=== PATIENT | female | born 1950 | race Caucasian/White ===

== ENCOUNTER 2018-04-15 16:45 | Outpatient (REF) | payer MEDICARE, SELFPAY ==
--- NOTE | 2018-04-15 16:00 | PAPFT_PTH ---
PATIENT: Randee Ho LOC: [facility] U#:[id number] AGE/SX: 67/F ROOM: RE04/15/[address]: Skyla Bui : 1950 BED: DIS: 04/15/2018 SPEC #: [id number] RECD: 04/16/18 12:56 STATUS: ARTEMIO REJosé Antonio #: [id number] KATIANA: 04/15/18 16:[address]: Skyla Bui DEPT: [facility] Cytology RECD BY: Ana Castorena Tissues: 1 - CX/ENDOCX FOR PAP SMEARS Procedures: PAP THIN PREP/[facility]VM Screening HPV DNA PROBE Comments: [id number]
== END 2018-04-15 17:05 ==
LOC: NCHCN 16:45
PROVIDERS: PCP Family Medicine; Visit Provider Family Medicine
DX: Z12.4 Encounter for screening for malignant neoplasm of cervix (principal); Z11.51 Encounter for screening for human papillomavirus (HPV)
CPT/HCPCS: 88142; 87624

== ENCOUNTER 2018-06-04 00:22 | Outpatient (CLI) | payer MEDICARE, SELFPAY ==
--- NOTE | 2018-06-04 12:50 | DI.DEXA_ITS ---
SYMPTOM/DIAGNOSIS: BASELINE, SCREENING FOR OSTEOPOROSIS IN POSTMENOPAUSAL WOMAN , Z78.0, [facility] DEXA SCAN: Routine examination. No priors for comparison. Evaluation of the lateral spine shows no compression fracture deformities. Evaluation of the left hip shows a total T score of 1.0 and a Z score of 2.4. Evaluation of the lumbar spine shows a total T score of 1.9 and a Z score of 3.7. These are within normal limits. There is no evidence of osteoporosis. IMPRESSION: No evidence of osteoporosis.
== END 2018-06-04 00:42 ==
PROVIDERS: PCP Family Medicine; Visit Provider Family Medicine
DX: Z13.820 Encounter for screening for osteoporosis (principal); Z78.0 Asymptomatic menopausal state
CPT/HCPCS: 77080

== ENCOUNTER 2019-02-14 12:48 | Outpatient (REF) | payer MEDICARE, SELFPAY ==
[2019-02-17 12:04] LABS: Hepatitis C Ab w Rflx HCV PCR Negative (NEGAT)
== END 2019-02-14 13:08 ==
LOC: NCHCN 12:48
PROVIDERS: PCP Family Medicine; Visit Provider Family Medicine
DX: Z11.59 Encounter for screening for other viral diseases (principal); I10 Essential (primary) hypertension
CPT/HCPCS: 86803

== ENCOUNTER 2021-02-21 13:55 | Outpatient (REF) | payer MEDICARE, SELFPAY ==
--- NOTE | 2021-02-21 13:20 | PAPFT_PTH ---
PATIENT: Randee Ho LOC: [facility] U#:[id number] AGE/SX: 70/F ROOM: RE02/21/[address]: MLEANIE Hernández : 1950 BED: DIS: 02/21/2021 SPEC #: [id number] RECD: 02/21/21 17:46 STATUS: ARTEMIO REQ #: [id number] KATIANA: 02/21/21 13:[address]: Haydee Obrien DEPT: [facility] Cytology RECD BY: Ana Castorena ENTERED: 02/21/21 17:47 SP TYPE: PAPFT OTHR DR: Skyla Bui Tissues: 1 - CX/ENDOCX FOR PAP SMEARS Procedures: PAP THIN PREP/UVM Screening HPV DNA PROBE Comments: [id number]
== END 2021-02-21 13:56 | disposition home or self-care (01) ==
LOC: LBN 13:55
PROVIDERS: PCP Family Medicine; Visit Provider Nurse Practitioner Family
DX: Z12.4 Encounter for screening for malignant neoplasm of cervix (principal); Z11.51 Encounter for screening for human papillomavirus (HPV); Z01.419 Encounter for gynecological examination (general) (routine) without abnormal findings
CPT/HCPCS: 88142; 87624

== ENCOUNTER 2022-09-25 11:58 | Emergency (ER) | payer MEDICARE, SELFPAY ==
[2022-09-25 12:04] VITALS: BP 177/60; PULSE 68; RESP 18; TEMP 36.8; O2SAT 100
[2022-09-25 12:11] VITALS: RESP 18
--- NOTE | 2022-09-25 13:34 | DI.RAD_ITS ---
Exam(s) XR CHEST 2V PA LATERAL EXAM: XR CHEST 2V PA LATERAL CLINICAL HISTORY: cough for several months TECHNIQUE: 2D digital imaging was performed of the chest. Two images were obtained. PA and lateral views were obtained. COMPARISON: No exams were available for comparison FINDINGS: MEDIASTINUM: Normal. HEART: Normal. PULMONARY VASCULATURE: Normal. LUNGS: Clear. PLEURAL SPACE: No pleural effusion or pneumothorax. BONE:Within normal limits for the patient's age. OTHER FINDINGS:Normal. IMPRESSION: No acute pulmonary findings. DATA REPOSITORY: RADIATION DOSE DELIVERED:
--- NOTE | 2022-09-25 13:39 | ED.GENADUL_ITS ---
Discharge Plan Disposition Patient Disposition: Home Condition: Stable Discharge Details Clinical Impression: URI (upper respiratory infection) Primary Care Provider: Skyla Bui ED Provider: Ana Jay Home Meds and New Rx's Prescriptions: New montelukast 10 mg tablet 10 mg PO DAILY Qty: 30 0RF amoxicillin-pot clavulanate 875-125 mg tablet 1 tab PO BID Qty: 10 0RF prednisone 20 mg tablet 40 mg PO ONCE Qty: 10 0RF Continued cholecalciferol (vitamin D3) [Vitamin D3] 400 UNIT capsule 50 mcg PO DAILY Rx Instructions: 2 daily, strength unknown multivitamin [Daily Vitamin] 1 EACH tablet 1 ea PO DAILY atenolol 50 MG tablet 50 mg PO DAILY benzonatate 100 mg Capsule 100 mg PO TID Discharge Instructions Instructions: Upper Respiratory Infection (ED) Additional Instructions: Take the medication as prescribed Yogurt daily while on antibiotic Follow-up your primary care physician return earlier with new or worsening complaints Referrals: Skyla Bui [Primary Care Provider] - Discharge Data Discharge Date/Time-TO BE ENTERED AT DEPARTURE: 09/25/22 13:59 Medical Decision Making This 71-year-old female presents with report of shortness of breath, productive cough and upper respiratory symptoms for months Secondary to age, I did order chest x-ray which does not show evidence of acute abnormality, patient denies any chest discomfort per radiology interpretation and my review She is placed on albuterol, steroids Montelukast, and she is encouraged to follow-up with her doctor Return precautions were reviewed and patient expressed understanding She is discharged home in stable condition with slightly elevated blood pressure and Medical Records Medical records reviewed: Yes I reviewed the patient's medical records. Lab Data Lab results reviewed: Yes I reviewed the patient's lab results. HPI General Date/Time Provider Initiated Documentation: 09/25/22 12:12 . HPI Narrative: This 71-year-old female presents with shortness of breath, productive cough, s inus pain for months per patient. Denies any acute symptoms. Came today she had a coughing episode this morning. Denies any fever or chills. Denies any shortness of breath currently. Denies any hemoptysis. Denies any known sick contacts, calf pain or swelling. States she has been seen previously by her doctor for similar presentation. Related Data Home Medications Medication Instructions Recorded Confirmed cholecalciferol (vitamin D3) 10 50 mcg PO DAILY 02/23/15 09/25/22 mcg (400 unit) capsule (Vitamin D3) multivitamin (Daily Vitamin tablet) 1 ea PO DAILY 03/02/15 09/25/22 atenolol 50 mg tablet 50 mg PO DAILY 05/21/15 09/25/22 amoxicillin 875 mg-potassium 1 tab PO BID #10 tabs 09/25/22 clavulanate 125 mg tablet benzonatate 100 mg capsule 100 mg PO TID 09/25/22 09/25/22 montelukast 10 mg tablet 10 mg PO DAILY #30 tabs 09/25/22 prednisone 20 mg tablet 40 mg PO ONCE #10 tabs 09/25/22 Previous Rx's Medication Instructions Recorded amoxicillin 875 mg-potassium 1 tab PO BID #10 tabs 09/25/22 clavulanate 125 mg tablet montelukast 10 mg tablet 10 mg PO DAILY #30 tabs 09/25/22 prednisone 20 mg tablet 40 mg PO ONCE #10 tabs 09/25/22 Allergies Allergy/AdvReac Type Severity Reaction Status Date / Time No Known Drug Allergies Allergy Unverified 09/25/22 12:07 General Stated Complaint: GenMedical SAGAR: 4 PFSH All Active Problems (Updated 09/25/22 @ 13:40 by RUDY Lopez) URI (upper respiratory infection) (Acute) Cervical polyp (Acute) Hypertension (Chronic) Medical History (Updated 09/25/22 @ 13:40 by RUDY Lopez) Hypertension Surgical History (Updated 05/15/18 @ 14:33 by [facility]) Ligation of fallopian tube (~1984) Pt notes that she thinks she has clamps on tube ends. Family History Mother Diabetes Essential hypertension Father , Old age at age 85. Essential hypertension Hyperlipidemia Grandfather , old age at age 85. No problems noted. Grandfather , old age at age 84. No problems noted. Grandmother , old age at age 83. Diabetes Grandmother , old age at age 84. No problems noted. Social History Smoking/Tobacco Use Status: Never Smoking risk assessment performed?: Yes Alcohol Intake: current Alcohol Intake frequency: a few times a week Drug use: Never Substance use type: does not use Exam Const General: cooperative, comfortable and no acute distress Eyes Sclera: sclerae normal Resp Effort & Inspection: normal respiratory effort Auscultation: clear to auscultation bilaterally Cardio Rate: regular rate Rhythm: regular rhythm GI Inspection: normal to inspection Skin General skin exam: no rashes or lesions noted Neuro General: patient alert and patient oriented x3 Extrem General: normal to inspection Left upper extremity: normal to inspection Other: No calf swelling or tenderness, neurovascularly intact Course Vital Signs Vital signs: Vital Signs Temperature 36.8 C 09/25/22 12:04 Pulse 68 09/25/22 12:04 Respiratory Rate 18 09/25/22 12:04 Blood Pressure 177/60 H 09/25/22 12:04 Pulse Oximetry 100 09/25/22 12:04 Temperature 36.8 C 09/25/22 12:04 Temperature Source Oral 09/25/22 12:04 Pulse 68 09/25/22 12:04 Respiratory Rate 18 09/25/22 12:11 Respiratory Effort Normal, Non-Labored 09/25/22 12:11 Respiratory Depth Normal 09/25/22 12:11 Respiratory Pattern Normal 09/25/22 12:11 Blood Pressure 177/60 H 09/25/22 12:04 Blood Pressure Position Sitting 09/25/22 12:04 Pulse Oximetry 100 09/25/22 12:04 Oxygen Delivery Method Room Air 09/25/22 12:04 Oxygen Flow Rate 0 09/25/22 12:04 PAWSS Have you Been Recently Intoxicated or Drunk Within the Last 30 days?: No Have you Ever Experienced Previous Episodes of Alcohol Withdrawal?: No Have you ever Experienced Withdrawal Seizures?: No Have you ever Experienced Delirium Tremens(DT)s?: No Have you ever undergone Alcohol Rehabilitation Treatment (i.e, inpt ot outpatient treatment programs)?: No Have you ever Experienced Blackouts?: No Have you ever Combined Alcohol with other Downers within the last 90 days?: No Have you ever Combined Alcohol with any other Substance of Abuse during the last 90 days?: No Positive Blood Alcohol level on Presentation? [PCS.BAL]: No Evidence of Increased Autonomic Activity (i.e. HR>120, tremor, sweating, agitation, nausea)?: No Result: 0
[2022-09-25] MEDS: Albuterol HFA 8 GM 60 PUFF INH IH (13:52)
[2022-09-25 13:55] VITALS: BP 158/58; PULSE 60; RESP 16; TEMP 37; O2SAT 100
== END 2022-09-25 13:59 | disposition home or self-care (01) ==
PROVIDERS: Emergency Provider Physician Assistant; PCP Family Medicine
DX: J06.9 Acute upper respiratory infection, unspecified (principal); I10 Essential (primary) hypertension
CPT/HCPCS: 94640; 99283; 71046; 99284

== ENCOUNTER → 2023-07-20 00:44 | Outpatient (CLI) | payer MEDICARE, SELFPAY ==
--- NOTE | 2023-07-20 12:58 | DI.MAMMO_ITS ---
Exam(s) MAMMO SCREENING EXAM: MAMMO SCREENING CLINICAL HISTORY: SCREENING, Z12.31 TECHNIQUE: Bilateral full field digital CC and MLO mammographic images were obtained with 3D tomosyn thesis and utilizing computer aided detection (CAD). COMPARISON: This is a baseline examination. FINDINGS: Masses/Architectural Distortion: None seen. Microcalcifications: No suspicious pleomorphic-type are seen. Skin Thickening/Nipple Retraction: None. IMPRESSION: 1. No significant interval change with no specific features of malignancy noted. 2. Unless there is more urgent need, screening mammography is recommended, as per [employer] guidelines. BI-RADS Category 1 - Negative Breast Density - Category B - Scattered areas of fibroglandular density Breast density category C or D implies that the patient has dense breast tissue. Dense breast tissue is very common and is not abnormal but dense breast tissue can make it harder to find cancer on a ma mmogram. Also, dense breast tissue may increase their breast cancer risk. This information about the result of the mammogram report was provided to the patient to raise their awareness. Use this report when you speak with the patient about their risks for breast cancer, which includes their family hist ory. At that time, you may recommend for more screening tests (Ultrasound or MRI) as they might be us eful based on their risk. A negative radiographic report should not delay biopsy if a dominant or clinically suspicious mass is present. Up to ten percent of cancers are not identified on mammography. A negative report may reinforce clinical impression. Adenosis and dense breasts may obscure an underlying neoplasm. False positive reports average 6 to 10%. Patient will receive a letter notifying them of these results.
== END ==
PROVIDERS: PCP Family Medicine; Visit Provider Family Medicine
DX: Z12.31 Encounter for screening mammogram for malignant neoplasm of breast (principal)
CPT/HCPCS: 77063; 77067

== ENCOUNTER → 2023-07-26 13:39 | Outpatient (BNVA) | payer MEDICARE, SELFPAY | PROVIDERS: PCP Family Medicine; Referring Provider Family Medicine; Visit Provider Physical Therapy Assistant | DX: Z12.11 Encounter for screening for malignant neoplasm of colon (principal); R63.4 Abnormal weight loss ==

== ENCOUNTER 2023-08-01 04:53 | Outpatient (CLI) | payer MEDICARE, SELFPAY ==
[2023-08-01 10:55] LABS: Abs Immature Grans 0.02 10^3/uL (0.0-0.06); Absolute Basophil Count 0.05 10^3/uL (0.0-0.2); Absolute Eosinophil Count 0.45 10^3/uL (0.0-0.7); Absolute Lymphocyte Count 1.26 10^3/uL (1.2-3.4); Absolute Monocyte Count 0.38 10^3/uL (0.1-0.8); Absolute Neutrophil Count 3.53 10^3/uL (1.2-6.7); Basophils % 0.9; Eosinophils % 7.9; HGB 14.8 g/dL (11.2-15.7); Immature Grans % 0.4; Lymphocytes % 22.1; MCH 32.7 pg (27.0-33.0); MCHC 34.4 % (32.0-36.0); MCV 95 fL (80-95); MPV 8.5 fL (8.0-11.0); Monocytes % 6.7; Platelet Count 155 10^3/uL (130-400); RBC 4.52 10^6/uL (3.93-5.22); RDW 14.6 % (11.7-14.6); RDW-SD 50.9 fL; WBC 5.69 10^3/uL (4.4-10.8)
[2023-08-01 11:31] LABS: ALT 20 U/L (14-59); AST 25 U/L (15-37); Alkaline Phosphatase 87 U/L (46-116); Anion Gap 7.1 mmol/L (3-11); BUN 4 mg/dL (7-18); Bilirubin, Total 0.7 mg/dL (0.2-1.0); CO2 29.9 mmol/L (21.0-32.0); CREATININE 0.8 mg/dL (0.55-1.02); Calcium 9.4 mg/dL (8.5-10.1); Calculated LDL 58 mg/dL (<100); Chloride 92 mmol/L (98-107); Cholesterol 174 mg/dL (<200); Estimated GFR 78.72 (mL/min/1.73m2); FREE T4 1.07 ng/dL (0.76-1.46); Glucose 102 mg/dL (74-106); HDL Cholesterol 108 mg/dL (40-60); Potassium 3.1 mmol/L (3.5-5.1); Sodium 129 mmol/L (136-145); TSH 1.97 uIU/mL (0.36-3.74); Total Protein 6.7 g/dL (6.4-8.2); Triglyceride 44 mg/dL (<150)
[2023-08-01 11:43] LABS: Vitamin D 25 Total 76.4 ng/mL (30-100)
== END 2023-08-01 04:54 | disposition home or self-care (01) ==
PROVIDERS: PCP Family Medicine; Visit Provider Family Medicine
DX: R63.4 Abnormal weight loss (principal)
CPT/HCPCS: 36415; 80053; 80061; 82306; 84439; 84443; 85025

== ENCOUNTER 2024-03-05 21:41 | Outpatient (REF) | payer MEDICARE, SELFPAY ==
[2024-03-05 21:37] LABS: HGB 13.9 g/dL (11.2-15.7); MCH 33.8 pg (27.0-33.0); MCHC 33.9 % (32.0-36.0); MCV 100 fL (80-95); MPV 9.1 fL (8.0-11.0); Platelet Count 234 10^3/uL (130-400); RBC 4.11 10^6/uL (3.93-5.22); RDW 12.5 % (11.7-14.6); WBC 8.94 10^3/uL (4.4-10.8)
--- OUTSIDE RECORDS SUMMARY | 2024-03-05 21:44 | XMS_ITS | Data Portability ---
Author Organization [facility], [facility] [place] [address] Assessment Encounter Date Assessment Date Assessment LastModified by Organization Details LastModified Time 03/05/2024 03/05/2024 The total time devoted to today's encounter, including both the ewio-vv-epof time with the patient and/or family/caregi katt and uhc-bvdr-ev-f kvng time I personally spent is 45 minutes. lbisson Not available 03/05/2024 16:17:58 Plan of Treatment Reminders Order Date Submit Date Provider Last Modified By Organization Details Last Modified Time Details Appointments Annual Chronic Care (65+) 40 2023 03:30P M SKYLA BUI Not available Not available Not available Follow Up 20 2023 03:50P M SKYLA BUI Not available Not available Not available Lab noninvasi ve colorecta l cancer DNA + occult blood screening , QL, stool 2023 024 [facility] (Cologuard Orders Only), [address], [place], [address], 09/04/2023 18:42:08 vitamin B12, serum 2023 024 [facility] ([facility]), [address] [place] [address] [place], [address], 03/05/2024 16:35:22 lipid panel, serum 2023 024 [facility] ([facility]), [address] [place] [address] [place], [address], 03/05/2024 16:35:21 CBC 2023 [facility] ([facility]), [address] [place] [address] [place], [address], 03/05/2024 21:40:48 vitamin D, 25-hydrox y, total, serum 2023 [facility] [address] [place] [address] [place], [address], 03/05/2024 16:30:41 CMP, serum or plasma - 1T, 1P 2023 [facility] [address] [place] [address] [place], [address], 03/05/2024 16:45:[address] referral 2023 lbisson [facility], [address] [place] [address] [place], [address], 03/05/2024 16:16:49 Procedures None recorded. Surgeries None recorded. Imaging None recorded. Medication Orders mirtazapi ne 15 mg tablet 2023 024 [facility], [address], [place], [address], 08/03/2023 16:45:39 hydrochlo rothiazid e 25 mg tablet 2023 024 [facility], [address] [place], [address], 08/03/2023 16:45:39 atenolol 100 mg tablet 2023 024 [facility], [address] [place], [address], 08/03/2023 16:45:37 atorvasta tin 10 mg tablet 2023 024 [facility], [address] , [place], [address], 08/03/2023 16:45:37 Patient TargetsNo targets recorded. Patient InstructionsNo instructions recorded. Reason for Referral Neurologist Referral for Mem ory impairment Referring Physician: Skyla Bui, Family Medicine, Encounter Date: 03/05/2024 Results Created Date Observation Date Name Description Value Unit Range Abnormal Flag LastModifiedBy Organization Detail LastModifiedTime 08/01/19 24 08/01/2023 COMPL ETE BLOOD COUNT W/DIF F WBC 5.69 10_3/ uL 4.4-10 .8 normal Not Available [address] [place], [address] 08/01/2023 10:58:44 08/01/19 24 08/01/2023 COMPL ETE BLOOD COUNT W/DIF F RBC 4.52 10_6/ uL 3.93-5 .22 normal Not Available [address] [place], [address] 08/01/2023 10:58:44 08/01/19 24 08/01/2023 COMPL ETE BLOOD COUNT W/DIF F HGB 14.8 g/dL 11.2-1 5.7 normal Not Available [address] [place], [address] 08/01/2023 10:58:44 08/01/19 24 08/01/2023 COMPL ETE BLOOD COUNT W/DIF F HCT 43.0 % 36.0-4 6.0 normal Not Available [address] [place], [address] 08/01/2023 10:58:44 08/01/19 24 08/01/2023 COMPL ETE BLOOD COUNT W/DIF F MCV 95 fL 80-95 normal Not Available [address] [place], [address] 08/01/2023 10:58:44 08/01/19 24 08/01/2023 COMPL ETE BLOOD COUNT W/DIF F MCH 32.7 pg 27.0-3 3.0 normal Not Available [address] [place], [address] 08/01/2023 10:58:44 08/01/19 24 08/01/2023 COMPL ETE BLOOD COUNT W/DIF F MCHC 34.4 % 32.0-3 6.0 normal Not Available [address] [place], [address] 08/01/2023 10:58:44 08/01/19 24 08/01/2023 COMPL ETE BLOOD COUNT W/DIF F RDW 14.6 % 11.7-1 4.6 normal Not Available [address] [place], [address] 08/01/2023 10:58:44 08/01/19 24 08/01/2023 COMPL ETE BLOOD COUNT W/DIF F platelet count 155 10_3/ uL 130-40 0 normal Not Available [address] [place], [address] 08/01/2023 10:58:44 08/01/19 24 08/01/2023 COMPL ETE BLOOD COUNT W/DIF F MPV 8.5 fL 8.0-11 .0 normal Not Available [address] [place], [address] 08/01/2023 10:58:44 08/01/19 24 08/01/2023 COMPL ETE BLOOD COUNT W/DIF F neutrophils % 62.0 Not Available [address] [place], [address] 08/01/2023 10:58:44 08/01/19 24 08/01/2023 COMPL ETE BLOOD COUNT W/DIF F lymphocytes % 22.1 Not Available [address] [place], [address] 08/01/2023 10:58:44 08/01/19 24 08/01/2023 COMPL ETE BLOOD COUNT W/DIF F monocytes % 6.7 Not Available Angela hudson [address] [place], [address] 08/01/2023 10:58:44 08/01/19 24 08/01/2023 COMPL ETE BLOOD COUNT W/DIF F eosinophils % 7.9 Not Available [address] [place], [address] 08/01/2023 10:58:44 08/01/19 24 08/01/2023 COMPL ETE BLOOD COUNT W/DIF F basophils % 0.9 Not Available Angela templetongayatri [address] [place], [address] 08/01/2023 10:58:44 08/01/19 24 08/01/2023 COMPL ETE BLOOD COUNT W/DIF F immature grans % 0.4 Not Available [address] [place], [address] 08/01/2023 10:58:44 08/01/19 24 08/01/2023 COMPL ETE BLOOD COUNT W/DIF F nucleated RBC 0.0 % 0.0-0. 3 normal Not Available [address] [place], [address] 08/01/2023 10:58:44 08/01/19 24 08/01/2023 COMPL ETE BLOOD COUNT W/DIF F absolute neutrophil count 3.53 10_3/ uL 1.2-6. 7 normal Not Available [address] [place], [address] 08/01/2023 10:58:44 08/01/19 24 08/01/2023 COMPL ETE BLOOD COUNT W/DIF F absolute lymphocyte count 1.26 10_3/ uL 1.2-3. 4 normal Not Available [address] [place], [address] 08/01/2023 10:58:44 08/01/19 24 08/01/2023 COMPL ETE BLOOD COUNT W/DIF F absolute monocyte count 0.38 10_3/ uL 0.1-0. 8 normal Not Available [address] [place], [address] 08/01/2023 10:58:44 08/01/19 24 08/01/2023 COMPL ETE BLOOD COUNT W/DIF F absolute eosinophil count 0.45 10_3/ uL 0.0-0. 7 normal Not Available [address] [place], [address] 08/01/2023 10:58:44 08/01/19 24 08/01/2023 COMPL ETE BLOOD COUNT W/DIF F absolute basophil count 0.05 10_3/ uL 0.0-0. 2 normal Not Available [address] [place], [address] 08/01/2023 10:58:44 08/01/19 24 08/01/2023 COMPR EHENS TONNY METAB OLIC PANEL calcium 9.4 mg/dL 8.5-10 .1 normal Not Available [address] [place], [address] 08/01/2023 11:38:49 08/01/19 24 08/01/2023 COMPR EHENS TONNY METAB OLIC PANEL glucose 102 mg/dL 74-106 normal Not Available [address] [place], [address] 08/01/2023 11:38:49 08/01/19 24 08/01/2023 COMPR EHENS TONNY METAB OLIC PANEL BUN 4 mg/dL 7-18 low Not Available [address] [place], [address] 08/01/2023 11:38:49 08/01/19 24 08/01/2023 COMPR EHENS TONNY METAB OLIC PANEL creatinine 0.8 mg/dL 0.55-1 .02 normal Not Available [address] [place], [address] 08/01/2023 11:38:49 08/01/19 24 08/01/2023 COMPR EHENS TONNY METAB OLIC PANEL estimated GFR 78.72 mL/min /1.73m 2 Not Available [address] [place], [address] 08/01/2023 11:38:49 08/01/19 24 08/01/2023 COMPR EHENS TONNY METAB OLIC PANEL total protein 6.7 g/dL 6.4-8. 2 normal Not Available [address] [place], [address] 08/01/2023 11:38:49 08/01/19 24 08/01/2023 COMPR EHENS TONNY METAB OLIC PANEL albumin 4.0 g/dL 3.4-5. 0 normal Not Available [address] [place], [address] 08/01/2023 11:38:49 08/01/19 24 08/01/2023 COMPR EHENS TONNY METAB OLIC PANEL bilirubin, total 0.7 mg/dL 0.2-1. 0 normal Not Available [address] [place], [address] 08/01/2023 11:38:49 08/01/19 24 08/01/2023 COMPR EHENS TONNY METAB OLIC PANEL alk phos 87 U/L 46-116 normal Not Available [address] [place], [address] 08/01/2023 11:38:49 08/01/19 24 08/01/2023 COMPR EHENS TONNY METAB OLIC PANEL sodium 129 mmol/ L 136-14 5 low Not Available [address] [place], [address] 08/01/2023 11:38:49 08/01/19 24 08/01/2023 COMPR EHENS TONNY METAB OLIC PANEL potassium 3.1 mmol/ L 3.5-5. 1 low Not Available [address] [place], [address] 08/01/2023 11:38:49 08/01/19 24 08/01/2023 COMPR EHENS TONNY METAB OLIC PANEL chloride 92 mmol/ L 98-107 low Not Available [address] [place], [address] 08/01/2023 11:38:49 08/01/19 24 08/01/2023 COMPR EHENS TONNY METAB OLIC PANEL CO2 29.9 mmol/ L 21.0-3 2.0 normal Not Available [address] [place], [address] 08/01/2023 11:38:49 08/01/19 24 08/01/2023 COMPR EHENS TONNY METAB OLIC PANEL anion gap 7.1 mmol/ L 3-11 normal Not Available [address] [place], [address] 08/01/2023 11:38:49 08/01/19 24 08/01/2023 COMPR EHENS TONNY METAB OLIC PANEL AST 25 U/L 15-37 normal Not Available [address] [place], [address] 08/01/2023 11:38:49 08/01/19 24 08/01/2023 COMPR EHENS TONNY METAB OLIC PANEL ALT 20 U/L 14-59 normal Not Available [address] [place], [address] 08/01/2023 11:38:49 08/01/19 24 08/01/2023 LIPID 2 cholesterol 174 mg/dL <200 Not Available [address] [place], [address] 08/01/2023 11:38:50 08/01/19 24 08/01/2023 LIPID 2 triglyceride 44 mg/dL <150 Not Available [address] [place], [address] 08/01/2023 11:38:50 08/01/19 24 08/01/2023 LIPID 2 HDL cholesterol 108 mg/dL 40-60 Not Available [address] [place], [address] 08/01/2023 11:38:50 08/01/19 24 08/01/2023 LIPID 2 calculated LDL 58 mg/dL <100 Not Available Miguel [address]ng[address] [place], [address] 08/01/2023 11:38:50 08/01/19 24 08/01/2023 TSH TSH 1.97 uIU/m L 0.36-3 .74 normal Not Available [address] [place], [address] 08/01/2023 11:38:51 08/01/19 24 08/01/2023 FREE T4 free T4 1.07 NG/dL 0.76-1 .46 normal Not Available [address] [place], [address] 08/01/2023 11:38:51 08/01/19 24 08/01/2023 VITAM IN D 25 TOTAL vitamin D 25 total 76.4 NG/mL 30-100 normal Not Available [address] [place], [address] 08/01/2023 11:48:48 08/23/19 24 08/23/2023 COLOG UARD cologuard result reportable NEGATI VE negati ve normal Not Available [facility] (Cologuard Orders Only) [address], [place], [address], 09/04/2023 18:42:08 07/21/20 23 07/20/2023 mammo graph y imagi ng repor krunal hector Name: Luz Maria Linder Unit #: [id number] Loc: DI Orderi ng Provid er: Skyla Bui Accoun t #: [id number] Status : REG CLI Primar y Care Provid er: Skyla Bui Date of Exam: Sex: F Admiss ion Date: : 1950 Age: 72 Exam(s ) MG MAMMO SCREEN ING EXAM: MG MAMMO SCREEN ING CLINIC AL HISTOR Y: SCREEN ING, Z12.31 TECHNI QUE: Bilate ral full field digita l CC and MLO mammog raphic images were obtain ed with 3D tomosy nthesi s and utiliz ing comput er aided detect ion (CAD). COMPAR BRADY: This is a baseli ne examin ation. FINDIN GS: Masses /Archi tectur al Distor tion: None seen. Microc alcifi cation s: No suspic ious pleomo rphic- type are seen. Skin Thicke kevin/N ipple Retrac tion: None. IMPRES ANNABELLE: 1. No signif icant interv al change with no specif ic featur es of malign paloma noted. 2. Unless there is more urgent need, screen ing mammog lester is recomm ended, as per [facility] y guidel latoya. BI-RAD S Catego ry 1 - Negati ve Breast Densit y - Catego ry B - Scatte red areas of fibrog landul ar densit y Breast densit y catego ry C or D implie s that the patien t has dense breast tissue . Dense breast tissue is very common and is not abnorm al but dense breast tissue can make it harder to find cancer on a mammog mic. Also, dense breast tissue may increa se their breast cancer risk. This inform ation about the result of the mammog mic report was provid ed to the patien t to raise their awaren ess. Use this report when you speak with the patien t about their risks for breast cancer , which includ es their family histor y. At that time, you may recomm end for more screen ing tests (Ultra sound or MRI) as they might be useful based on their risk. A negati ve radiog raphic report should not delay biopsy if a domina nt or clinic ally suspic ious mass is presen t. Up to ten percen t of cancer s are not identi fied on mammog lester. A negati ve report may reinfo rce clinic al impres annabelle. Adenos is and dense breast s may obscur e an underl yue neopla sm. False positi ve report s averag e 6 to 10%. Patien t will receiv e a letter notify ing them of these result sPoli Burgos d By: Skyla Bui CC: ------ ------ ------ ------ ------ ------ ------ ------ ------ ------ ------ ------ - Dictat ed By: Grayson Petty M.D. 1308 1308 Transc ribed By: Grayson Petty 1308 This is privil eged, confid ential inform ation intend ed only for the provid er named. Any use or distri bution by any person other than this provid er is strict ly prohib ited. If you receiv e this report in error, please notify us immanuel koehler at and return the origin al report to us at the addres s above. Thank- you. [email or web address] [facility] [address], [place], [address] 02/12/2024 13:27:31 Result Notes None recorded. Problems Name Status Onset Date Resolution Date Notes Provider Name and Address Organization Details Recorded Time Menopause present Active 201504/17/2018 - Comments only - Skyla Bui MD - These are getting less over time. Problem Code: N95.1; Problem Code Type: ICD-10; Not Available [facility] 3 05:13:45 Adult health examination Active 201508/24/2022 - Comments only - Skyla Bui MD - Randee Ho is a healthy active 71-year-old female here for general well exam. Overall she is feeling well. She reports she eats a healthy diet she exercises regularly. Her weight has been stable. She denies any change in her hearing she does see her eye doctor and dentist as recommended. She takes her medications as prescribed. Problem Code: Z00.00; Problem Code Type: ICD-10; Not Available [facility] 3 05:13:45 Rosacea Active 201501/11/2017 - Comments only - Skyla Bui MD - Refer to dermatology. Problem Code: L71.9; Problem Code Type: ICD-10; Not Available [facility] 3 05:13:45 Essential hypertension Active 201508/24/2022 - Comments only - Skyla Bui MD - Blood pressure stable no changes were made today. Problem Code: I10; Problem Code Type: ICD-10; Not Available [facility] 3 05:13:45 Osteoarthriti s Active 201506/28/2016 - Comments only - Skyla Bui MD - Patient has OA of her fingers and hands with some enlargement of the distal IP joints and stiffness. We discussed using NSAID and would not want to take them. Problem Code: M19.90; Problem Code Type: ICD-10; Not Available [facility] 3 05:13:45 Tear film insufficiency Active 201506/28/2016 - Comments only - Skyla Bui MD - Patient has dry red eyes and has a small lesion on the outer sclera of the left eye and would like a referal to the opthtomologis t. Problem Code: H04.129; Problem Code Type: ICD-10; Not Available [facility] 3 05:13:45 Vitamin D deficiency Active 201501/11/2017 - Comments only - Skyla Bui MD - Patient Vitamin D is still low. She will start 2000IUs a day. Problem Code: E55.9; Problem Code Type: ICD-10; Not Available [facility] 3 05:13:45 Hyperlipidemi a Active 201608/24/2022 - Comments only - Skyla Bui MD - Patient's cholesterols been controlled no changes were made today. Problem Code: E78.5; Problem Code Type: ICD-10; Not Available [facility] 3 05:13:45 Screening for osteoporosis Active 2017 Problem Code: Z13.820; Problem Code Type: ICD-10; Not Available [facility] 3 05:13:46 Screening mammography Active 201802/14/2019 - Comments only - Skyla Bui MD - Patient is way overdue for her mammogram we will go ahead and get that scheduled. Problem Code: Z12.31; Problem Code Type: ICD-10; Not Available [facility] 3 05:13:46 Disorder of skin and/or subcutaneous tissue Active 201805/11/2021 - Comments only - Skyla Biu MD - The lesion on her nose really look more like rosacea than any other concern. Recommend she stop picking at the little pimples and let it heal up. She does have a prescription for Cleocin if she can continue to use that. Problem Code: L98.9; Problem Code Type: ICD-10; Not Available [facility] 3 05:13:46 Chronic rhinitis Active 202208/24/2022 - Comments only - Skyla Bui MD - Patient's biggest concern today is that she has a chronic nasal congestion and a lot of posterior nasal drip that causes a cough at night and she coughs a lot during the day. Her lungs are clear and there is no sign of any infection. Her nasal passages are somewhat swollen. She is using a nasal spray that is similar to Afrin. Discussed with her that that causes a lot of of rebound and this is not a good choice. We will put her on some Flonase she can take 1 spray each side twice a day. Cautioned her that is going to take a while for that rebound to wear off and she may have a lot of nasal congestion for the next week or 2. She can try some Tessalon Perles to see if that helps quieted down for her. She had been trying some wefh-njc-vzol ter guaifenesin which was not particularly helpful. She does use a very dry heat recommend that they put a humidifier in their home. Especially where they sleep. She can gargle with warm water and salt as well. Problem Code: J31.0; Problem Code Type: ICD-10; Not Available [facility] 3 05:13:46 Viral screening Completed 201805/22/2019 Problem Code: Z11.59; Problem Code Type: ICD-10; Not Available [facility] 3 05:14:01 Hyperglycemia Completed 201501/11/2017 Problem Code: R73.9; Problem Code Type: ICD-10; Not Available [facility] 3 05:14:05 Unintentional weight loss Active 2022 JOSE M DENNISON RN [facility] 3 12:35:41 Screening for cancer Active 2022 Problem Code: Z12.10; Problem Code Type: ICD-10; Not Available [facility] 4 05:36:54 Abnormal weight loss Active 202204/20/2023 - Comments only - Skyla Bui MD - Patient reports that she is here because she has had weight loss. She reports that her significant other is concerned because she feels that she continues to eat a normal healthy diet but she is losing weight. She reports that his concern is that her memory is sleep slipping. She reports that she eats fine. Would have her do a food diary she is going to write down what she is eating several days a week. She will bring those logs in with her when she comes in for her well exam. We will go ahead and get her scheduled for a colonoscopy for which she is overdue. Discussed with her that week she really needs to come in for complete well exam so we can evaluate make sure there is nothing else going on. We will go ahead and check her lipids CMP CBC vitamin D level. We will also need to add a TSH T4 because of the weight loss. Problem Code: R63.4; Problem Code Type: ICD-10; Not Available [facility] 4 05:36:54 Feces-based colorectal cancer DNA screening Active 2023 TONYA MCCOY CMA null, [facility] 4 13:44:45 Memory impairment Active 2023 SKYLA BUI MD [address], [place], [address] , [facility] 16:14:12 Problem Notes None recorded. Procedures Surgical History None recorded. Imaging Results Imaging Date Name Status LastModified by Organiz ation Details LastModified Time 07/20/2023 mammography imaging report completed [email or web address] [facility] [address], [place], [address] 02/12/2024 13:27:31 Procedure Notes None recorded. Medical Equipment None Reported. Medications Name Sig Start Date Stop Date Status Note LastModified by Organization Details LastModified Time atorvastati n 10 mg tablet Take 1 tablet every day by oral route at bedtime for 90 days. active Not Available Not Available No t Available aspirin 325 mg tablet Take 2 tab by mouth daily 2015 active Not Available Not Available Not Avai lable atenolol 100 mg tablet TAKE ONE TABLET BY MOUTH EVERY DAY IN THE MORNING active Not Available Not Available No t Available prednisone 20 mg tablet TAKE TWO TABLETS BY MOUTH ONCE DAILY FOR 5 DAYS 08/03 completed Not Available Not Available Not Available amlodipine 5 mg tablet Take 1 tab by mouth daily 02/22 completed Not Available Not Available Not Available clindamycin 1 % topical gel Apply topically to affected area twice daily 06/07 completed Not Available Not Available Not Available benzonatate 100 mg capsule TAKE ONE CAPSULE BY MOUTH THREE TIMES A DAY NEEDED 08/03 completed Not Available Not Available Not Available MetroCream 0.75 % topical Apply to face and chest twice a day 09/20 completed Not Available Not Available Not Available lisinopril 10 mg tablet Take 1 tab by mouth daily 06/07 completed Not Available Not Available Not Available montelukast 10 mg tablet TAKE ONE TABLET BY MOUTH EVERY DAY active Not Available Not Available No t Available hydrochloro thiazide 25 mg tablet Take 1 tablet every day by oral route in the morning for 90 days. active Not Available Not Available No t Available mirtazapine 15 mg tablet TAKE ONE TABLET BY MOUTH EVERY DAY DIRECTED active Not Available Not Available No t Available fluticasone propionate 50 mcg/actuati on nasal spray,suspe nsion SPRAY ONE SPRAY INTO BOTH NOSTRILL TWO TIMES A DAY active Not Available Not Available No t Available atenolol 50 mg tablet Take 1 tab by mouth daily 02/22 completed Not Available Not Available Not Available amoxicillin 875 mg-potassiu m clavulanate 125 mg tablet TAKE ONE TABLET BY MOUTH TWICE A DAY 08/03 completed Not Available Not Available Not Available Vitamin D3 25 mcg (1,000 unit) tablet 2 tabs qd 2015 active Not Available Not Available Not Avai lable metronidazo le 1 % topical gel Apply to affected area twice daily 06/28 completed Not Available Not Available Not Available Multivital 0.4 mg-162 mg-18 mg tablet 1 tab qd 2015 active Not Available Not Available Not Avai lable Multivital 1 tablet once a day 2015 active Not Available Not Available Not Avai lable magnesium oxide 500 mg capsule Take 1 tab by mouth daily 09/20 completed Not Available Not Available Not Available Vitals Date Recorded Body height Body mass index (BMI) Body weight Body temperature Oxygen saturation Oxygen saturation in Arterial blood by Pulse oximetry Heart rate Respiratory rate Systolic blood pressure Diastolic blood pressure Provider Name and Address Organization Details Last Updated DateTime 4 154.94 cm 18.8 kg/m2 31296.0 8 g 98.4 [degF] 99 % 99 % 65 /min 17 /min 126 mm[Hg] 72 mm[Hg] JOSE M DENNISON RN [facility] 15:36:50 Date Recorded Body height Body mass index (BMI) Body weight Body temperature Heart rate Oxygen saturation Oxygen saturation in Arterial blood by Pulse oximetry Respiratory rate Provider Name and Address Organization Details Last Updated DateTime 152.4 cm 21.4 kg/m2 99371.6 7 g 96.9 [degF] 68 /min 99 % 99 % 16 /min TONYA MCCOY CMA [facility] 15:20:25 Date Recorded Systolic blood pressure Diastolic blood pressure Provider Name and Address Organization Details Last Updated DateTime 03/05/2024 133 mm[Hg] 72 mm[Hg] SKYLA BUI MD [address], [place], [address], [facility] 03/05/2024 16:05:34 Social History Question Answer Notes LastModified by Organizat ion Details LastModified Time Tobacco Smoking Status Never Smoker JOSE M DENNISON RN [facility], [facility] 08/03/2023 15:38:11 Do You Have An Advance Directive? No Information n ot available 03/05/2024 What Type Of Diet Are You Following? REGULAR Information n ot available 03/05/2024 Would You Say That, In General, Your Health Is Very Good Information not available 03/05/2024 Women Aged 18-50 - Would You Like To Become In The Next Year? (Female Patients Only) No Information not available 03/05/2024 How Often Does Anyone, Including Family, Physically Hurt You? Never Information not available 03/05/2024 How Often Does Anyone, Including Family, Insult Or Talk Down To You? Never Information no t available 03/05/2024 How Often Does Anyone, Including Family, Threaten You With Harm? Never Information not available 03/05/2024 How Often Does Anyone, Including Family, Scream Or Curse At You? Never Information not available 03/05/2024 Within The Past 12 Months, You Worried That Your Food Would Run Out Before You Got Money To Buy More. Never True Information n ot available 03/05/2024 Within The Past 12 Months, The Food You Bought Just Didn't Last And You Didn't Have Money To Get More. Never True Information not available 03/05/2024 How Hard Is It For You To Pay For The Very Basics Like Food, Housing, Medical Care, And Heating? Would You Say It Is: Not Hard At All Information not available 03/05/2024 In The Past 12 Months, Has Lack Of Reliable Transportation Kept You From Medical Appointments, Meetings, Work Or From Getting Things Needed For Daily Living? No Information not available 03/05/2024 What Is Your Housing Situation Today? I Have Housing. Information not available 03/05/2024 How Often In The Past Year Have You Used Marijuana (including Smoking, Vaping, Dabbing, Or Edibles)? Never Information not available 03/05/2024 How Often In The Past Year Have You Used Prescription Medications That Were Not Prescribed To You? Never Information not available 03/05/2024 How Often In The Past Year Have You Taken Your Own Prescription Medication More Than The Way It Was Prescribed Or For Different Reasons Than Its Intended Purpose? Never Information not available 03/05/2024 How Often In The Past Year Have You Used Other Drugs (for Example, Heroin, Cocaine, Meth, Salvia, Inhalants)? Never Information not available 03/05/2024 Date Of Most Recent SBINS 03/05/2024 Information not available 03/05/2024 Do You Have A Medical Power Of Elementary Special Education Teacher? No Information not available 03/05/2024 What Was The Date Of Your Most Recent Tobacco Screening? 03/05/2024 Information n ot available 03/05/2024 Has Tobacco Cessation Counseling Been Provided? No [email or web address] Information not available 08/03/2023 Do You Have Any Dietary Restrictions? No Information not available 03/05/2024 Do You Or Have You Ever Used Any Other Forms Of Tobacco Or Nicotine? No Information not available 03/05/2024 Sex: Female Functional Status Question Answer Note LastModified by Organization D etails LastModified Time What is your exercise level? None Information not available 03/05/2024 Mental Status None recorded. Family History Relationship Description Onset Age of this Age Resolved Age Notes Father Family history of Hypertension Mother Family history of di abetes mellitus type 1 Medical History No medical history recorded. Gynecological HistoryNo gynecological history recorded. Obstetrics History GPAL:G 0 P 0 0 0 0 Immunizations Vaccine Type Date Status Provider Name and Address Organization Details Recorded Time Pneumococcal conjugate PCV20, polysaccharide [id number] conjugate, adjuvant, PF 03/05/2024 completed TONYA MCCOY, [employer] null, [place] [facility] 03/05/2024 16:26:25 Tdap 06/28/2016 completed Not Available [facility] 04:14:13 zoster live 12/29/2015 completed Not Available [facility] 06/08/2023 04:14:14 Pneumococcal conjugate PCV 13 02/22/2017 completed Not Available [facility] 06/08/2023 04:14:14 Influenza, split virus, trivalent, preservative 05/05/2016 completed Not Available [facility] 06/08/2023 04:14:16 Influenza, split virus, quadrivalent, preservative 04/15/2018 completed Not Available [facility] 06/08/2023 04:14:17 Influenza, high-dose, quadrivalent, PF 04/17/2022 completed Not Available [facility] 06/08/2023 04:14:18 Influenza, high-dose, quadrivalent, PF 05/11/2021 completed Not Available [facility] 06/08/2023 04:14:18 COVID-19, mRNA, LNP-S, PF, 30 mcg/0.3 mL dose 09/30/2020 completed Not Available [facility] 06/08/2023 04:14:20 COVID-19, mRNA, LNP-S, PF, 30 mcg/0.3 mL dose 10/28/2020 completed Not Available [facility] 06/08/2023 04:14:20 pneumococcal polysaccharide PPV23 04/15/2018 completed Not Available [facility] 2022 04:14:22 influenza, unspecified formulation 05/05/2017 completed Not Available [facility] 06/08/2023 04:14:23 influenza, unspecified formulation 05/17/2020 completed Not Available [facility] 06/08/2023 04:14:24 Influenza, high-dose, quadrivalent, PF 04/20/2023 completed Not Available [facility] 08/10/2023 05:33:00 Past Encounters Encounter ID Performer Location Encounter Start Date Encounter Closed Date Diagnosis/Indication Diagnosis SNOMED-CT Code [id number] SKYLA BUI MD [address] [address] 08/03/2023 15:18:00 08/03/2023 16:16:08 Unintentional weight loss [id number] Essential hypertension 10641550 Hyperlipidemia 64412712 [id number] TONYA MCCOY CMA [address] [address] 03/05/2024 15:11:27 03/05/2024 16:07:08 Active or passive immunization [id number] Essential hypertension 84759926 Hyperlipidemia 45317872 Vitamin D deficiency 347 16361 Adult heal th examination 418123121 Memory impairment 095305 006 Health Concerns Section Related Observation LastModified by Organization Detai ls LastModified Time None Recorded Concern Status LastModified by Organization Details LastModified Time None Recorded Advance Directives Directive N: Payers Encounter Date Sequence Insurance Name Policy Number Policy Meyers Covered Member ID Meyers Member ID Guarantor Name 08/03/2023 1 [place] [employer] Randee Ho [id number] Randee Ho 03/05/2024 1 [place] [employer] Randee Ho [id number] Randee Ho Notes Date Note Type Note Provider Name and Address Organization Details Recorded Time 08/03/2023 text/html HPI Notes: Ana is a 77-year-old female comes in today because she has been scheduled for a colonoscopy and when she was there doing the intake they were very worried that she had been confused and didn't feel that she was capable of signing the concept. She refused a colonoscopy after that point. She comes in today with her . His biggest concern is that she continues to lose weight and that she is not eating Enough. She reports that she eats what she feels like she wants. He is also concerned that she is getting more confused more readily, and that her memory is getting worse over time. He would like to know what should be done about this. She's not had any illnesses, no nausea, vomiting, Or heartburn. patient denies chest pain, shortness of breath, fevers, or chills. She reports that she's not always a good sleeper. Patient's reports that they have changed their insurance so new prescriptions need to be sent in for all of her medication's. SKYLA BUI MD [address], [place], [address], [facility]. 08/05/2023 05:54:08 OBGyn Episode No OBEpisode recorded.
--- OUTSIDE RECORDS SUMMARY | 2024-03-05 21:45 | XMS_ITS | Encounter Summary ---
Author Organization [facility] Address [address] [place] [address] Care Team Providers Care Residential Program Coordinator Name Role Phone Unknown, Provider Primary Care Provider [phone] Encounter Details Date Type Department Care Team (Late st Contact Info) Description 05/21/2015 Results Only [facility] [phone] Jackie García MD [address] [place] [address] [place] [address] Social History Tobacco Use Types Packs/Day Years Used Date Smoking Tobacco: Never Assessed Sex and Gender Information Value Date Recorded Sex Assigned at Not on file Gender Identity Not on file Sexual Orientation Not on file documented as of this encounter Plan of Treatment Not on file documented as of this encounter Procedures Procedure Name Priority Date/Time Associated Diagnosis Comments PAP TEST- RESULT ONLY Routine 05/21/2015 0:00 EDT documented in this encounter Results * PAP TEST- RESULT ONLY (05/21/2015 0:00 EDT) Pathology Report: CYTOPATHOLOGY REPORT Reports generated via electronic interface contain original data; however they are lacking the format of the original report. Caution should be taken when reading/interpret ing unformatted reports. Name: ? FRIDA ELDER ? Accession #: ? [id number] ? : ? 1950 (Age: 64) ??F ?Collect Date: ? 05/21/2015 ? Location: ? [facility] ? Receive Date: ? 05/24/2015 ? Provider: JACKIE GARCÍA MD Copy to: YANNI CAMPBELL MD ? Final Report SPECIMEN ADEQUACY ? Satisfactory for Evaluation - transformation zone component present GENERAL CATEGORIZATION ? Epithelial Cell Abnormality INTERPRETATION ? Squamous Cell Abnormality - Atypical squamous cells, undetermined significance (ASC-US). EDUCATIONAL NOTES/RECOMMENDAT IONS ? [facility] recommends following ASCCP's 2012 Updated Consensus Guidelines for the Management of Abnormal Cervical Cancer Screening Tests and Cancer Precursors (JLGTD, 2013; 17(5):S1-S27). ??Consensus guidelines are available online at www.asccp.org. Specimen/Source: ??Pap Test, Cervix/Endocervix , ThinPrep Imaging System with manual evaluation Document reviewed and electronically signed by: ? BUBBA MARTÍNEZ MD [facility] ? Report ??Date: 05/27/2015 09:01 HPV with Pap Test ? Date Ordered: ? 05/26/2015 ? Status: ?? Signed Out ?Date Complete: ? 05/29/2015 ? By: ??System Interface ? Date Reported: ? 05/29/2015 ? Interpretation RESULT: Negative for HPV. No E6 or E7 mRNA is detected from HPV types 16,18,31,33,35, 39,45,51,52,56,58 ,59,66, and 68 by mule operator mediated amplification. Comments Document reviewed and electronically signed by: ? System Interface ? Report date: 05/29/2015 By the signature above, the attending physician certifies that he/she has personally conducted a gross and/or microscopic examination of the described specimens and rendered or confirmed the above diagnosis. End of Report [facility] 05/21/2015 05/24/2015 Jackie García MD PATHOLOGY ORDERABLES [facility] [address] [place] [address] documented in this encounter Visit Diagnoses Not on filedocumented in this encounter Care Teams Residential Program Coordinator Relationship Specialty Start Date End Date Unknown, Provider, PCP - General 05/24/15 documented as of this encounter
--- OUTSIDE RECORDS SUMMARY | 2024-03-05 21:45 | XMS_ITS | Encounter Summary ---
Author Organization [facility] [place] [address] Care Team Providers Care Aix System Administrator Name Role Phone Skyla Bui MD Primary Care Provider [phone] Encounter Details Date Type Department Care Team (Late st Contact Info) Description 10/27/2020 Telephone Family Medicine at [facility] [address] [place] [address] Elizabeth Mandujano Social History Tobacco Use Types Packs/Day Years Used Date Smoking Tobacco: Never Assessed Sex and Gender Information Value Date Recorded Sex Assigned at Female 04/08/2021 11:21 AM EDT Gender Identity Female 04/08/2021 11:21 AM EDT Sexual Orientation Straight 04/08/2021 11 :21 AM EDT documented as of this encounter Plan of Treatment Not on file documented as of this encounter Visit Diagnoses Not on filedocumented in this encounter Care Teams Aix System Administrator Relationship Specialty Start Date End Date Skyla Bui MD [address] [place] [address] PCP - General Family Medicine 01/12/17 04/10/21 documented as of this encounter
--- OUTSIDE RECORDS SUMMARY | 2024-03-05 21:45 | XMS_ITS | Encounter Summary ---
Author Organization [facility] Address [address] [facility] [place] [address] Care Team Providers Care Automatic Lathe Tender Name Role Phone Ale Brink APRN Primary Care Provider [phone] Encounter Details Date Type Department Care Team (Late st Contact Info) Description 04/20/2021 Telephone Family Medicine at [address] [place] [address] Brittney Lopes Social History Tobacco Use Types Packs/Day Years Used Date Smoking Tobacco: Never Smokeless Tobacco: Never Overall Financial Resource Strain (CARDIA) Answe r Date Recorded How hard is it for you to pa y for the very basics like food, housing, medical care, and heating? Patient declined 04/08/2021 Exercise Vital Sign Answer Date Recorde d On average, how many days pe r week do you engage in moderate to strenuous exercise (like a brisk walk)? Patient declined On average, how many minutes do you engage in exercise at this level? Patient declined 04/08/2021 Hunger Vital Sign Answer Date Recorded Within the past 12 months, y ou worried that your food would run out before you got the money to buy more. Patient declined Within the past 12 months, t he food you bought just didn't last and you didn't have money to get more. Patient declined 04/2021 PRAPARE - Transportation Answer Date Re corded In the past 12 months, has l ack of transportation kept you from medical appointments or from getting medications? No 03/30 In the past 12 months, has l ack of transportation kept you from meetings, work, or from getting things needed for daily living? No 04/08/2021 Housing Stability Vital Sign Answer Rolan e Recorded In the last 12 months, was t here a time when you were not able to pay the mortgage or rent on time? Patient refused 04/08/20 21 In the last 12 months, how many places have you lived? 1 04/08/2021 In the last 12 months, was t here a time when you did not have a steady place to sleep or slept in a detention (including now)? No 04/08/2021 Sex and Gender Information Value Date Recorded Sex Assigned at Female 04/08/2021 11:21 AM EDT Gender Identity Female 04/08/2021 11:21 AM EDT Sexual Orientation Straight 04/08/2021 11 :21 AM EDT documented as of this encounter Miscellaneous Notes * Telephone Encounter - Brittney Lopes - 04/20/2021 10:28 AM EDT Called pt and left a vm to call back and schedule a 1-2 month follow up with PCP documented in this encounter Plan of Treatment Not on file documented as of this encounter Visit Diagnoses Not on filedocumented in this encounter Care Teams Automatic Lathe Tender Relationship Specialty Start Date End Date Ale Brink APRN [facility] [address] [place] [address] PCP - General Family Medicine 04/11/21 documented as of this encounter
--- OUTSIDE RECORDS SUMMARY | 2024-03-05 21:45 | XMS_ITS | Encounter Summary ---
Author Organization [facility] Address [address] [facility] [address] Care Team Providers Care Boat Puller Name Role Phone Ale Brink APRN Primary Care Provider [phone] Encounter Details Date Type Department Care Team (Late st Contact Info) Description 04/12/2021 Notes Only Family Medicine at [address] [place] [address] Bety Bae RN Social History Tobacco Use Types Packs/Day Years [...] place to sleep or slept in a skilled nursing (including now)? No 04/08/2021 Sex and Gender Information Value Date Recorded Sex Assigned at Female 04/08/2021 11:21 AM EDT Gender Identity Female 04/08/2021 11:21 AM EDT Sexual Orientation Straight 04/08/2021 11 :21 AM EDT documented as of this encounter Progress Notes * Bety Bae RN - 04/12/2021 4:13 PM EDT Faxed labs and imaging orders to [facility]. documented in this encounter Plan of Treatment Not on file documented as of this encounter Visit Diagnoses Not on filedocumented in this encounter Care Teams Boat Puller Relationship Specialty Start Date End Date Ale Brink APRN [facility] [address] [place] [address] PCP - General Family Medicine 04/11/21 documented as of this encounter
--- OUTSIDE RECORDS SUMMARY | 2024-03-05 21:45 | XMS_ITS | Referral Summary ---
Author Organization [facility] Address [address] [place] [address] Care Team Providers Care Director Of Scout Work Name Role Phone Unknown, Provider Primary Care Provider [phone] Social History Tobacco Use Types Packs/Day Years Used Date Smoking Tobacco: Never Assessed Sex and Gender Information Value Date Recorded Sex Assigned at Not on file Gender Identity Not on file Sexual Orientation Not on file Plan of Treatment Not on file Care Teams Director Of Scout Work Relationship Specialty Start Date End Date Unknown, Provider, PCP - General 05/24/15
--- OUTSIDE RECORDS SUMMARY | 2024-03-05 21:45 | XMS_ITS | Encounter Summary ---
Author Organization [facility] [place] [address] Care Team Providers Care Welding Supervisor Name Role Phone Skyla Bui MD Primary Care Provider Encounter Details Date Type Department Care Team (Late st Contact Info) Description 11/05/2020 [facility] [address] [place] [address] Anabella Feliz, DOPE FIRER Social History Tobacco Use Types Packs/Day Years [...] on filedocumented in this encounter Care Teams Welding Supervisor Relationship Specialty Start Date End Date Skyla Bui MD [address] [place] [address] PCP - General Family Medicine 01/12/17 04/10/21 documented as of this encounter
--- OUTSIDE RECORDS SUMMARY | 2024-03-05 21:45 | XMS_ITS | Encounter Summary ---
Author Organization [facility] Address [address] [place] [address] Care Team Providers Care Trust Administrative Assistant Name Role Phone Unknown, Provider Primary Care Provider Encounter Details Date Type Department Care Team (Late st Contact Info) Description 02/22/2021 Lab Requisition [facility] Pathology & Laboratory Medicine - [facility] [address] [place] [address] [address] [place] [address] Encounter for other general examination Social History Tobacco Use Types Packs/Day Years Used Date Smoking Tobacco: Never Assessed Sex and Gender Information Value Date Recorded Sex Assigned at Not on file Gender Identity Not on file Sexual Orientation Not on file documented as of this encounter Plan of Treatment Not on file documented as of this encounter Procedures Procedure Name Priority Date/Time Associated Diagnosis Comments PAP TEST Today 02/21/2021 13:20 EDT Encounter for other general examination HPV DNA DETECTION WITH GENOTYPING, PCR Today 02/21/2021 13:20 EDT Encounter for other general examination documented in this encounter Results * HUMAN PAPILLOMAVIRUS (HPV) DETECTION-HIGH RISK TYPES (02/21/2021 13:20 EDT) HPV other High Risk types, PCR Negative Negative 03/02/2021 15:18 EDT [facility] Comment:No E6 or E7 mRNA is detected from HPV types 16,18,31,33,35,39,45,51,52,56,58,59,66, and 68 by butane compressor operator mediated amplification. Papanicolaou smear specimen (specimen) CERVIX UTERI STRUCTURE / Unknown 02/21/2021 13:20 EDT 03/01/2021 13:35 EDT Hayede Obrien HEATING FIXTURE TENDER MICROBIOLOGY - GENER AL ORDERABLES [facility] [address] [place] [address] * PAP TEST (02/21/2021 13:20 EDT) Specimens A. Cervix and/or Endocervix , ThinPrep Imaging System with Manual Evaluation 03/02/2021 15:18 EDT [facility] Specimen Adequacy Satisfactory for Evaluation - transformation zone component present 03/02/2021 15:18 EDT [facility] General Categorization Negative for intraepithelial lesion or malignancy 03/02/2021 15:18 T [facility] Attestation . 03/02/2021 15:18 T [facility] at 1518 Clinical History See below 03/02/20 15:18 T [facility] HPV The result for the Human Papillomavirus (HPV) Detection-High Risk Types is Negative. No E6 or E7 mRNA is detected from HPV types 16,18,31,33,35,39 ,45,51,52,56,58,5 9,66, and 68 by butane compressor operator mediated amplification.Priscilla ting was performed on specimen [id number] and was resulted on 03/02/2021 1509 EDT by VICKY, LAB INSTRUMENT RESULTS IN 03/02/2021 15:18 EDT [facility] Performing Lab [facility] 03/02/2021 15:18 EDT [facility] Scanned Images 03/02/2021 15:18 EDT [facility] Papanicolaou smear specimen (specimen) CERVIX UTERI STRUCTURE / Unknown 02/21/2021 13:20 EDT 02/22/2021 11:43 EDT Haydee Obrien HEATING FIXTURE TENDER PATHOLOGY ORDERABLES [facility] [address] [place] [address] documented in this encounter Visit Diagnoses Diagnosis Encounter for other general examination documented in this encounter Care Teams Trust Administrative Assistant Relationship Specialty Start Date End Date Unknown, Provider, PCP - General 05/24/15 documented as of this encounter
--- OUTSIDE RECORDS SUMMARY | 2024-03-05 21:45 | XMS_ITS | Clinical Summary ---
Author Organization [facility] Address [facility] [place] [address] Care Team Providers Care Wedding Coordinator Name Role Phone Ale Brink APRN Primary Care Provider [phone] Medications Medication Sig Dispensed Refills Start Date End Date Status multivitamin (THERAGRAN) Tablet Take 1 tablet by mouth daily. Active cholecalciferol, Vitamin D3, (Vitamin D3) 1,000 unit Tablet Take by mouth daily. Active aspirin 325 mg Tablet Take 325 mg by mouth daily. Active atorvastatin (Lipitor) 10 mg Tablet Take 10 mg by mouth daily. Active hydroCHLOROthiazide (Hydrodiuril) 25 mg Tablet Take 25 mg by mouth daily. Active atenoloL (Tenormin) 50 mg Tablet Take 1 tablet by mouth daily. 90 tablet 3 04/12/2021 Active Active Problems Problem Noted Date Diagnosed Date Cognitive change 04/11/2021 Facial skin lesion 11/05/2020 Breast cancer screening by mammogram 11/05/2020 Encounter for screening for osteoporosis 021 Hyperlipidemia 11/05/2020 Vitamin D deficiency 11/05/2020 Dry eyes 11/05/2020 OA (osteoarthritis) 11/05/2020 Overview (04/11/2021): Hands, bilateral. Hypertension 11/05/2020 Rosacea 11/05/2020 Hot flashes 11/05/2020 Immunizations Name Administration Dates Next Due Influenza Unspecified Formulation 2019,04/05/2018,05/05/2017,05/05 Pneumococcal Polysaccharide (Pneumovax 23) 04/15/2018 Pneumococcal Vaccine, Unspec ified Formulation 02/22/2017 Tdap 06/28/2016 Family History Medical History Relation Comments Diabetes Maternal Grandmother Hypertension Mother No Known Problems Sister Breast Cancer Neg Hx Cerebrovascular Accident Neg Hx Colorectal Cancer Neg Hx Coronary Artery Disease Early Onset Neg Hx Ovarian Cancer Neg Hx Relation Status Comments Father Maternal Grandfather Maternal Grandmother Mother Alive Paternal Grandfather Paternal Grandmother Sister Alive Social History Tobacco Use Types Packs/Day Years [...] place to sleep or slept in a fpc (including now)? No 04/08/2021 Sex and Gender Information Value Date Recorded Sex Assigned at Female 04/08/2021 11:21 AM EDT Gender Identity Female 04/08/2021 11:21 AM EDT Sexual Orientation Straight 04/08/2021 11 :21 AM EDT Last Filed Vital Signs Vital Sign Reading Time Taken Comments Blood Pressure 142/80 04/11/2021 1:28 PM EDT Pulse 69 04/11/2021 1:28 PM EDT Temperature - - Respiratory Rate 18 04/11/2021 1:28 PM EDT Oxygen Saturation 99% 04/11/2021 1:28 PM EDT Inhaled Oxygen Concentration - - Weight 56.3 kg (124 lb 1.6 oz) 04/11/2021 1:28 P M EDT Height 157 cm (5' 1.81) 04/11/2021 1:28 PM EDT Body Mass Index 22.84 04/11/2021 1:28 PM EDT Plan of Treatment Health Maintenance Due Date Last Done Comments CT Colonography 1950 Colonoscopy 1950 FIT 1950 Sigmoidoscopy (10 year) with FIT yearly 1950 Sigmoidoscopy 1950 Hepatitis C Screening 11/09/1969 Breast Cancer Share Decision Needed 1991 Breast Cancer screening 1991 Zoster vaccine (1 of 2) 11/09/2001 Advance Directive 11/09/2006 Pneumoccocal Vaccine: 65+ (2 of 2 - PCV) 04/15/2019 04/15/2018, 02/22/2017 Covid-19 Vaccine (1 - 2022-2 4 season) 2023 Influenza (Flu) vaccine (1 o f 1 - Influenza standard series) 03/30/2024 05/17/2020, 04/05/2018, 05/05/2017, Additional history exists Tetanus vaccine 06/28/2026 06/28/2016 Colorectal Cancer Screening 08/03/2026 FIT DNA 08/03/2026 08/03/2023 (Report in [facility]) Bone Density Scan 06/04/2033 06/04/2018 (Ou tside per patient (enter details in comments)) Tdap adult Completed 06/28/2016 Care Teams Wedding Coordinator Relationship Specialty Start Date End Date Ale Brink APRN [facility] [place] [address] PCP - General Family Medicine 04/11/21
--- OUTSIDE RECORDS SUMMARY | 2024-03-05 21:45 | XMS_ITS | Encounter Summary ---
Author Organization [facility] Address [address] [place] [address] Care Team Providers Care Buggyman Name Role Phone Unavailable Primary Care Provider Unavailabl e Encounter Details Date Type Department Care Team (Latest Contact Info) Description 05/21/2015 15:14 EDT - 05/21/2015 23:59 EDT Hospital Encounter [address] [address] Unknown, Provider, Discharge Disposition: Home or Self Care Social History Tobacco Use Types Packs/Day Years Used Date Smoking Tobacco: Never Assessed Sex and Gender Information Value Date Recorded Sex Assigned at Not on file Gender Identity Not on file Sexual Orientation Not on file documented as of this encounter Discharge Disposition Disposition Code Departure Means Destination Home or Self Senior Care documented in this encounter Plan of Treatment Not on file documented as of this encounter Visit Diagnoses Not on filedocumented in this encounter
--- OUTSIDE RECORDS SUMMARY | 2024-03-05 21:45 | XMS_ITS | Encounter Summary ---
Author Organization [facility] Address [address] [place] [address] Care Team Providers Care Plastic Tile Layer Name Role Phone Unknown, Provider Primary Care Provider [phone] Encounter Details Date Type Department Care Team (Late st Contact Info) Description 04/15/2018 Results Only [facility] [phone] Joy Bui MD [address] [place] [phone] Social History Tobacco Use Types Packs/Day Years [...] Diagnosis Comments PAP TEST- RESULT ONLY Routine 04/15/2018 0:00 EDT documented in this encounter Results * PAP TEST- RESULT ONLY (04/15/2018 0:00 EDT) Pathology Report: CYTOPATHOLOGY REPORT Reports generated via electronic interface contain original data; however they are lacking the format of the original report. Caution should be taken when reading/interpreti ng unformatted reports. Name: ? FRIDA ELDER ? Accession #: ? [id number] ? : ? 1950 (Age: 67) ??F ?Collect Date: ? 04/15/2018 ? Location: ? [facility] ? Receive Date: ? 04/17/2018 ? Provider: JOY BUI MD Copy to: ? Final Report SPECIMEN ADEQUACY ? Satisfactory for Evaluation - transformation zone component present GENERAL CATEGORIZATION ? Negative for Intraepithelial Lesion or Malignancy ?? Menstrual/Pregnanc y Status: ??Menopausal Previous Gynecologic Pathology: Polyp: Cervical Specimen/Source: ??Pap Test, Cervix/Endocervix, ThinPrep Imaging System with manual evaluation Document reviewed and electronically signed by: ? Pennie Ibarra [facility](AS[facility]) ? Report ??Date: 04/23/2018 13:37 HPV with Pap Test ? Date Ordered: ? 04/23/2018 ? Status: ?? Signed Out ?Date Complete: ? 04/25/2018 ? By: ??System Interface ? Date Reported: ? 04/25/2018 ? Interpretation RESULT: Negative for HPV. No E6 or E7 mRNA is detected from HPV types 16,18,31,33,35, 39,45,51,52,56,58, 59,66, and 68 by yard switcher mediated amplification. Comments Document reviewed and electronically signed by: ? System Interface ? Report date: 04/25/2018 By the signature above, the attending physician certifies that he/she has personally conducted a gross and/or microscopic examination of the described specimens and rendered or confirmed the above diagnosis. End of Report [facility] 04/15/2018 04/17/2018 Joy Bui MD PATHOLOGY ORDERABLES [facility] [address] [place] [address] documented in this encounter Visit Diagnoses Not on filedocumented in this encounter Care Teams Plastic Tile Layer Relationship Specialty Start Date End Date Unknown, Provider, PCP - General 05/24/15 documented as of this encounter
--- OUTSIDE RECORDS SUMMARY | 2024-03-05 21:45 | XMS_ITS | Continuity of Care Document ---
Author Organization [facility] Address [address] [place] [address] Assessment Encounter Date Assessment Date Assessment LastModified by Organization Details LastModified Time 03/05/2024 03/05/2024 The total time devoted to today's encounter, including both the naag-uk-jwbj time with the patient and/or family/caregi katt and sbw-linb-rn-f kvng time I personally spent is 45 minutes. lbisson Not available 03/05/2024 16:17:58 Plan of Treatment Reminders Order Date Submit Date Provider Last Modified By Organization Details Last Modified Time Details Appointments Annual Chronic Care (65+) 40 2023 03:30P Elsi BUI Not available Not available Not available Follow Up 20 2023 03:50P Elsi BUI Not available Not available Not available Lab vitamin B12, serum 2023 024 [facility] ([facility]), [address] [place] [address] [place], [address], 03/05/2024 16:35:22 lipid panel, serum 2023 024 [facility] ([facility]), [address] [place] [address] [place], [address], 03/05/2024 16:35:21 CBC 2023 024 [facility] ([facility]), [address] [place] [address] [place], [address], 03/05/2024 21:40:48 vitamin D, 25-hydrox y, total, serum 2023 024 [facility] ([facility]), [address] [place] [address] [place], [address], 03/05/2024 16:30:41 CMP, serum or plasma - 1T, 1P 2023 024 [facility] ([facility]), [address] [place] [address] [place], [address], 03/05/2024 16:45:[address] referral 2023 024 [facility], [address] [place] [address] [place], [address], 03/05/2024 16:16:49 Procedures None recorded. Surgeries None recorded. Imaging None recorded. Medication Orders None recorded. Patient TargetsNo targets recorded. Patient InstructionsNo instructions recorded. Reason for Referral Neurologist Referral for Mem ory impairment Referring Physician: Joy Bui, Family Medicine, Encounter Date: 03/05/2024 Problems Name Status Onset Date Resolution Date Notes Provider Name and Address Organization Details Recorded Time Menopause present Active 201504/17/2018 - Comments only - Joy Bui MD - These are getting less over time. Problem Code: N95.1; Problem Code Type: ICD-10; Not Available [facility] 3 05:13:45 Adult health examination Active 201508/24/2022 - Comments only - Joy Bui MD - Randee Ho is a [...] Z00.00; Problem Code Type: ICD-10; Not Available [facility] 3 05:13:45 Rosacea Active 201501/11/2017 - Comments only - Joy Bui MD - Refer to dermatology. Problem Code: L71.9; Problem Code Type: ICD-10; Not Available [facility] 3 05:13:45 Essential hypertension Active 201508/24/2022 - Comments only - Joy Bui MD - Blood pressure stable no changes were made today. Problem Code: I10; Problem Code Type: ICD-10; Not Available [facility] 3 05:13:45 Osteoarthriti s Active 201506/28/2016 - Comments only - Joy Bui MD - Patient has OA of her fingers and hands with some enlargement of the distal IP joints and stiffness. We discussed using NSAID and would not want to take them. Problem Code: M19.90; Problem Code Type: ICD-10; Not Available [facility] 3 05:13:45 Tear film insufficiency Active 201506/28/2016 - Comments only - Joy Bui MD - Patient has dry red eyes and has a small lesion on the outer sclera of the left eye and would like a referal to the opthtomologis t. Problem Code: H04.129; Problem Code Type: ICD-10; Not Available [facility] 3 05:13:45 Vitamin D deficiency Active 201501/11/2017 - Comments only - Joy Bui MD - Patient Vitamin D is still low. She will start 2000IUs a day. Problem Code: E55.9; Problem Code Type: ICD-10; Not Available [facility] 3 05:13:45 Hyperlipidemi a Active 201608/24/2022 - Comments only - Joy Bui MD - Patient's cholesterols been controlled no changes were made today. Problem Code: E78.5; Problem Code Type: ICD-10; Not Available [facility] 3 05:13:45 Screening for osteoporosis Active 2017 Problem Code: Z13.820; Problem Code Type: ICD-10; Not Available [facility] 3 05:13:46 Screening mammography Active 201802/14/2019 - Comments only - Joy Bui MD - Patient is way overdue for her mammogram we will go ahead and get that scheduled. Problem Code: Z12.31; Problem Code Type: ICD-10; Not Available [facility] 3 05:13:46 Disorder of skin and/or subcutaneous tissue Active 201805/11/2021 - Comments only - Joy Bui MD - The lesion on her nose really look more like rosacea than any other concern. Recommend she stop picking at the little pimples and let it heal up. She does have a prescription for Cleocin if she can continue to use that. Problem Code: L98.9; Problem Code Type: ICD-10; Not Available [facility] 3 05:13:46 Chronic rhinitis Active 202208/24/2022 - Comments only - Joy Bui MD - Patient's biggest concern today [...] for her. She had been trying some bfkr-dgx-zdcn ter guaifenesin which was not particularly helpful. She does use a very dry heat recommend that they put a humidifier in their home. Especially where they sleep. She can gargle with warm water and salt as well. Problem Code: J31.0; Problem Code Type: ICD-10; Not Available [facility] 3 05:13:46 Viral screening Completed 201805/22/2019 Problem Code: Z11.59; Problem Code Type: ICD-10; Not Available [facility] 3 05:14:01 Hyperglycemia Completed 201501/11/2017 Problem Code: R73.9; Problem Code Type: ICD-10; Not Available [facility] 3 05:14:05 Unintentional weight loss Active 2022 JOSE M DENNISON RN [facility], [facility] 3 12:35:41 Screening for cancer Active 2022 Problem Code: Z12.10; Problem Code Type: ICD-10; Not Available [facility] 4 05:36:54 Abnormal weight loss Active 202204/20/2023 - Comments only - Joy Bui MD - Patient reports that she [...] R63.4; Problem Code Type: ICD-10; Not Available [facility] 4 05:36:54 Feces-based colorectal cancer DNA screening Active 2023 TONYA MCCOY CMA null, [place] - [facility] 4 13:44:45 Memory impairment Active [address], [place], [address] , [facility] 4 16:14:12 Problem Notes None recorded. Medical Equipment None Reported. [...] Last Updated DateTime 152.4 cm 21.4 kg/m2 32296.6 7 g 96.9 [degF] 68 /min 99 % 99 % 16 /min TONYA MCCOY CMA [facility] 15:20:25 Date Recorded Systolic blood pressure Diastolic blood pressure Provider Name and Address Organization Details Last Updated DateTime 03/05/2024 133 mm[Hg] 72 mm[Hg] JOY BUI MD [address], [place], [address], [facility] 03/05/2024 16:05:34 Social History Question Answer Notes LastModified by Organizat ion Details LastModified Time Tobacco Smoking Status Never Smoker JOSE M DENNISON RN [facility], [facility] 08/03/2023 15:38:11 Do You Have An Advance [...] Do You Have A Medical Power Of Manager Systems? No Information not available 03/05/2024 What Was The Date Of Your Most Recent Tobacco Screening? 03/05/2024 Information n ot available 03/05/2024 Has Tobacco Cessation Counseling Been Provided? No [email or web address] Information not available 08/03/2023 Do You Have [...] Details Recorded Time Pneumococcal conjugate PCV20, polysaccharide RMO196 conjugate, adjuvant, PF 03/05/2024 completed KARSON SANC[place], [place] - [facility] 03/05/2024 16:26:25 Tdap 06/28/2016 completed Not Available [facility] 04:14:13 zoster live 12/29/2015 completed Not Available [facility] 06/08/2023 04:14:14 Pneumococcal conjugate PCV 13 02/22/2017 completed Not Available [facility] 06/08/2023 04:14:14 Influenza, split virus, trivalent, preservative 05/05/2016 completed Not Available [facility] 06/08/2023 04:14:16 Influenza, split virus, quadrivalent, preservative 04/15/2018 completed Not Available [facility] 06/08/2023 04:14:17 Influenza, high-dose, quadrivalent, PF 04/17/2022 completed Not Available [facility] 06/08/2023 04:14:18 Influenza, high-dose, quadrivalent, PF 05/11/2021 completed Not Available [facility] 06/08/2023 04:14:18 COVID-19, mRNA, LNP-S, PF, 30 mcg/0.3 mL dose 09/30/2020 completed Not Available [facility] 06/08/2023 04:14:20 COVID-19, mRNA, LNP-S, PF, 30 mcg/0.3 mL dose 10/28/2020 completed Not Available [facility] 06/08/2023 04:14:20 pneumococcal polysaccharide PPV23 04/15/2018 completed Not Available [facility] 2022 04:14:22 influenza, unspecified formulation 05/05/2017 completed Not Available [facility] 06/08/2023 04:14:23 influenza, unspecified formulation 05/17/2020 completed Not Available [facility] 06/08/2023 04:14:24 Influenza, high-dose, quadrivalent, PF 04/20/2023 completed Not Available [facility] 08/10/2023 05:33:00 Past Encounters Encounter ID Performer Location Encounter Start Date Encounter Closed Date Diagnosis/Indication Diagnosis SNOMED-CT Code [id number] TONYA MCCOY [address] [address] 03/05/2024 15:11:27 03/05/2024 16:07:08 Active or passive immunization 796339074 Essential hypertension 82552413 Hyperlipidemia 15492750 Vitamin D deficiency 347 03980 Adult heal th examination 250156356 Memory impairment 281937 006 Health Concerns Section Related Observation LastModified by Organization Detai ls LastModified Time None Recorded Concern Status LastModified by Organization Details LastModified Time None Recorded Payers Encounter Date Sequence Insurance Name Policy Number Policy Meyers Covered Member ID Meyers Member ID Guarantor Name 03/05/2024 1 [place] [employer] Randee Ho [id number] Randee Ho OBGyn Episode No OBEpisode recorded.
--- OUTSIDE RECORDS SUMMARY | 2024-03-05 21:45 | XMS_ITS | Encounter Summary ---
Author Organization [facility] [place] [address] Care Team Providers Care Special Needs Bus Driver Name Role Phone Ale Brink APRN Primary Care Provider [phone] Reason for Visit * Reason Comments Annual Wellness Visit Establish Care Encounter Details Date Type Department Care Team (Late st Contact Info) Description 04/11/2021 1:20 PM EDT Office Visit Family Medicine at [facility] [address] [place] [address] Ale Brink APRN [facility] [place] [address] Preventative health care; Encounter for screening mammogram for malignant neoplasm of breast; Screening for malignant neoplasm of colon; Hyperlipidemia, unspecified hyperlipidemia type; Essential hypertension; Cognitive change; Age-related osteoporosis without current pathological fracture ; Multiple excoriations Social History Tobacco Use Types Packs/Day Years [...] place to sleep or slept in a assisted (including now)? No 04/08/2021 Sex and Gender Information Value Date Recorded Sex Assigned at Female 04/08/2021 11:21 AM EDT Gender Identity Female 04/08/2021 11:21 AM EDT Sexual Orientation Straight 04/08/2021 11 :21 AM EDT documented as of this encounter Last Filed Vital Signs Vital Sign Reading [...] Mass Index 22.84 04/11/2021 1:28 PM EDT documented in this encounter Patient Instructions * Patient Instructions* Roddy Sullivan, [facility] - 04/11/2021 1:20 PM EDT Images from the original note were not included. - Please decrease your atenolol to 50mg daily for the next two weeks, and take your blood pressure twice a day at home. Please call and speak with the nurse about your home blood pressure readings. Important Resources in the Community: [facility] Aging resource center - [place] - [facility] [place] - [facility] Health Maintenance recommendations [] Hepatitis C screening: The USPSTF recommends one-time screening for all adults over 18. [x] Osteoporosis screening: The USPSTF recommends screening for osteoporosis in ALL women > 65 as well as women < 65 years of age with risk factors and men with hx of low trauma bone fracture, therapy for prostate cancer, hypogonadism, hyperparathyroidism or intestinal disorders. [] Breast Cancer Screening: The USPSTF recommends screening for breast cancer in average risk womenstarting at age 50 which should continue every 1-2 years as long as life expectancy is at least 10 years. [] Colon Cancer Screening: should begin at age 50 for average-risk individuals and continue to the age of 75. Screening includes colonoscopy every 10 yrs and alternatives include the Cologuard test every 3 years or annual FIT testing. [] Lung Cancer screening: The USPSTF recommends annual screening with low-dose helical CT for patients if they are in good health, and at increased risk for lung cancer (age 55 to 74 years; history of smoking at least 30 pack-years and, if a former smoker, have quit within the previous 15 years.) [] Prostate cancer screening - Routine PSA screening is controversial and should be inidivualized. USPTF gives a level C recommendation for men age 55-69 and do not recommended screening for men over70 yo. [x] Fall Prevention: Stay strong and fit to prevent falls, keep your floors clear and wear rubber-soled shoes. If this is a concern we will discuss specifics and resources to help. [x] Dental Care: We recommend 2 maintenance visits a year, brushing teeth 2-3 times daily and flossing daily [] Heart attack and stroke prevention: Aim for 30 minutes of moderate-intensity exercise daily. Maintain a healthy weight and follow a heart healthy diet rich in vegetables/fruits, whole grains and lean meat. Avoid alcohol or keep this at 1 drink or less daily. Avoid all tobacco and nicotine-containing products. [x] Use sunscreen regularly to protect yourself from skin cancer. VACCINES [] Tetanus vaccine is recommended every 10 yrs and should be administered as Tdap (which includes protection against pertussis or whooping cough) at least once in adulthood. [] Pneumonia vaccine Pneumococcal vaccination is recommended for all individuals > 65 and includes two vaccinations, usually given one year apart ( PCV13 and PPSV23) [] Shingles vaccine is now recommended over the age of 50 and SHINGRIX is the preferred immunization. Even those who had ZOSTAVAX in the past should have SHINGRIX. This is a 2-shot series, given typically 2 months apart. Medicare does not cover this in the office. It is covered under Medicare Part D and given in the pharmacy. Co-pay cost will vary. [x] Annual influenza vaccination is recommended Patient Education Well Visit, Women 50 to 65: Care Instructions Overview Well visits can help you stay healthy. Your doctor has checked your overall health and may have suggested ways to take good care of yourself. Your doctor also may have recommended tests. At home, youcan help prevent illness with healthy eating, regular exercise, and other steps. Follow-up care is a piper part of your treatment and safety. Be sure to make and go to all appointments, and call your doctor if you are having problems. It's also a good idea to know your test resultsand keep a list of the medicines you take. How can you care for yourself at home? ?? Get screening tests that you and your doctor decide on. Screening helps find diseases before anysymptoms appear. ?? Eat healthy foods. Choose fruits, vegetables, whole grains, protein, and low- fat dairy foods. Limit fat, especially saturated fat. Reduce salt in your diet. ?? Limit alcohol. Have no more than 1 drink a day or 7 drinks a week. ?? Get at least 30 minutes of exercise on most days of the week. Walking is a good choice. You alsomay want to do other activities, such as running, swimming, cycling, or playing tennis or team sports. ?? Reach and stay at a healthy weight. This will lower your risk for many problems, such as obesity, diabetes, heart disease, and high blood pressure. ?? Do not smoke. Smoking can make health problems worse. If you need help quitting, talk to your doctor about stop-smoking programs and medicines. These can increase your chances of quitting for good. ?? Care for your mental health. It is easy to get weighed down by worry and stress. Learn strategies to manage stress, like deep breathing and mindfulness, and stay connected with your family and community. If you find you often feel sad or hopeless, talk with your doctor. Treatment can help. ?? Talk to your doctor about whether you have any risk factors for sexually transmitted infections (STIs). You can help prevent STIs if you wait to have sex with a new partner (or partners) until you've each been tested for STIs. It also helps if you use condoms (male or female condoms) and if you limit your sex partners to one person who only has sex with you. Vaccines are available for some STIs. ?? If you think you may have a problem with alcohol or drug use, talk to your doctor. This includesprescription medicines (such as amphetamines and opioids) and illegal drugs (such as cocaine and methamphetamine). Your doctor can help you figure out what type of treatment is best for you. ?? Protect your skin from too much sun. When you're outdoors from 10 a.m. to 4 p.m., stay in the shade or cover up with clothing and a hat with a wide brim. Wear sunglasses that block UV rays. Even when it's cloudy, put broad-spectrum sunscreen (SPF 30 or higher) on any exposed skin. ?? See a dentist one or two times a year for checkups and to have your teeth cleaned. ?? Wear a seat belt in the car. When should you call for help? Watch closely for changes in your health, and be sure to contact your doctor if you have any problems or symptoms that concern you. Where can you learn more? Visit our [employer] information library at https://[email or web address] You can also view health information on [employer], your personal patient account. Log in or sign uptoday. Enter Y074 in the search box to learn more about Well Visit, Women 50 to 65: Care Instructions. Current as of: December 24, 2019?Content Version: 12.9 ?? 8882-8999 [employer]. Care instructions adapted under license by [facility]. If you have questions about a medical condition or this instruction, always ask your healthcare professional. [employer] disclaims any warranty or liability for your use of this information. Patient Education Home Blood Pressure Test: About This Test What is it? A home blood pressure test allows you to keep track of your blood pressure at home. Blood pressure is a measure of the force of blood against the fischer of your arteries. Blood pressure readings include two numbers, such as 130/80 (say 130 over 80). The first number is the systolic pressure. The second number is the diastolic pressure. Why is this test done? You may do this test at home to: ?? Find out if you have high blood pressure. ?? Track your blood pressure if you have high blood pressure. ?? Track how well medicine is working to reduce high blood pressure. ?? Check how lifestyle changes, such as weight loss and exercise, are affecting blood pressure. How do you prepare for the test? For at least 30 minutes before you take your blood pressure, don't exercise, drink caffeine, or smoke. Empty your bladder before the test. Sit quietly with your back straight and both feet on the floor for at least 5 minutes. This helps you take your blood pressure while you feel comfortable and relaxed. How is the test done? ?? If your doctor recommends it, take your blood pressure twice a day. Take it in the morning and evening. ?? Sit with your arm slightly bent and resting on a table so that your upper arm is at the same level as your heart. ?? Use the same arm each time you take your blood pressure. ?? Place the blood pressure cuff on the bare skin of your upper arm. You may have to roll up your sleeve, remove your arm from the sleeve, or take your shirt off. ?? Wrap the blood pressure cuff around your upper arm so that the lower edge of the cuff is about 1inch above the bend of your elbow. ?? Do not move, talk, or text while you take your blood pressure. Follow the instructions that came with your blood pressure monitor. They might be different from the following. ?? Press the on/off button on the automatic monitor. Then you may need to wait until the screen says the monitor is ready. ?? Press the start button. The cuff will inflate and deflate by itself. ?? Your blood pressure numbers will appear on the screen. ?? Wait one minute and take your blood pressure again. ?? If your monitor does not automatically save your numbers, write them in your log book, along with the date and time. Follow-up care is a piper part of your treatment and safety. Be sure to make and go to all appointments, and call your doctor if you are having problems. It's also a good idea to keep a list of the medicines you take. Where can you learn more? Visit our [employer] information library at https://dev9k/Tourvia.me You can also view health information on [employer], your personal patient account. Log in or sign uptoday. Enter C427 in the search box to learn more about Home Blood Pressure Test: About This Test. Current as of: March 29, 2020?Content Version: 12.9 ?? [id number] [employer]. Care instructions adapted under license by [facility]. If you have questions about a medical condition or this instruction, always ask your healthcare professional. [employer] disclaims any warranty or liability for your use of this information. documented in this encounter Progress Notes * Roddy Sullivan, [facility] - 04/11/2021 1:20 PM EDT Randee Vera Ho, is a 70 y.o. female presents for : [x] Medicare Annual Wellness Visit [] Welcome to Medicare Visit (in the first 12 mo of medicare, requires vision screen, PE) Preferred phone for AWV if needed: [phone] Patient Care Team and Vendors: (add in Care Teams) Patient Care Team: Skyla Bui MD as PCP - General (Family Medicine) Clinical fall risk observation: [x] Patient ambulates well without assistive device [] Patient arrives to visit with assist of: [] Wheelchair [] Walker [] Cane [] Other Advanced directives: [] Yes, completed and on file in eDH [] Yes, completed and at home [] No, would like assistance completing or a referral for ACP [] No, forms requested or patient confirms that they are available at home. Any concern for memory issues or hx of memory issues? no MiniCog: Three word recall (patient repeats after 5 minutes): 1. [] Village 2. [] Kitchen 3. [] Baby [] Pass 3/3 [] Fail. Score: (If 2/3 or less will need to complete clockface: hands/ numbers and time at 11:10) Health Risk Self-Assessment (HRA): MUST be completed at time of visit or AWV cannot be done. Can becompleted verbally with MA. (all responses reviewed including blank responses) Annual Wellness Visit Responses: myD-H Annual Wellness Visit Responses 04/08/2021 Little interest or pleasure Not at all Down, depressed, hopeless Not at all Medications were reconciled. Allergies were reviewed. Health Maintenance was reviewed and pended for provider review. [x] After visit summary updated (Please add .HTRAWVAVS to patient instructions in wrap up) * Ale Brink APRN - 04/11/2021 1:20 PM EDT Subjective: Patient ID: Randee Ho is a 70 y.o. female who presents today for Medicare Annual Wellness Visit. Chief Complaint Patient presents with ??? Annual Wellness Visit ??? Establish Care I have reviewed and independently verified the information provided by the medical equipment repair technician as documented in this encounter. . Pt presents new to me for AWV. Generally feels well. Has lost some weight this year intentionally by improving her diet. We have received limited outside records from her previous PCP in [facility]. She lives in the [facility] area and wanted to travel down here for her care, her drives her. #) HLD Taking atorvastatin Last lipids check >1 year ago #) HTN Taking atenolol 100mg daily + HCTZ Due for Cr/electrolytes check Previously took lisinopril but this caused a side effect so was switched to atenolol Has a BP cuff at home, reports BP is always higher in the clinic Has some fatigue No prior history chest pain, palpitations, racing heart, heart disease #) OA Bilateral hands Appearance is bothersome but pain is manageable #) Postmenopausal state LMP age 49 No vaginal bleeding since then Mild hot flushes intermittently, not severe #) Headaches Takes ASA 325mg as needed for a headache #) Health maintenance Pap test 02/2021 - Normal and negative for HPV, next due 02/2026 DEXA 3 years ago, normal Overdue for mammogram #) Bumps on skin C/o small bumps on face and upper back that are bothersome to her Asks me to look at them - was previously prescribed topical clindamycin and reports this was not helpful Medications 04/11/21 1354 Medication Sig Taking? multivitamin (THERAGRAN) Tablet Take 1 tablet by mouth daily. Yes cholecalciferol, Vitamin D3, (Vitamin D3) 1,000 unit Tablet Take by mouth daily. Yes aspirin 325 mg Tablet Take 325 mg by mouth daily. Yes atorvastatin (Lipitor) 10 mg Tablet Take 10 mg by mouth daily. Yes atenoloL (Tenormin) 100 mg Tablet Take 100 mg by mouth daily. Yes hydroCHLOROthiazide (Hydrodiuril) 25 mg Tablet Take 25 mg by mouth daily. Yes Past medical, social, family and surgical history reviewed and/or updated today. REVIEW OF SYSTEMS 04/08/2021 Constitutional None of the above Ear / nose / throat / mouth None of the above Eyes None of the above Respiratory None of the above Cardiovascular None of the above Gastrointestinal None of the above Skin, hair Other symptoms with skin or hair Musculoskeletal None of the above Neurological None of the above Hematologic / Lymphatic None of the above Genitourinary None of the above Objective: BP 142/80 (BP Location (NBP): Left arm, Patient Position: Sitting, BP Cuff Sizes: Small Adult (20-26 cm)) Pulse 69 Resp 18 Ht 157 cm (5' 1.81) Wt 56.3 kg (124 lb 1.6 oz) SpO2 99% BMI 22.84 kg/m?? No flowsheet data found. Physical Exam Vitals reviewed. Constitutional: General: She is not in acute distress. HENT: Head: Atraumatic. Right Ear: Tympanic membrane and ear canal normal. Left Ear: Tympanic membrane and ear canal normal. Mouth/Throat: Comments: Wearing mask Eyes: Extraocular Movements: Extraocular movements intact. Pupils: Pupils are equal, round, and reactive to light. Cardiovascular: Rate and Rhythm: Normal rate and regular rhythm. Heart sounds: Normal heart sounds. No murmur heard. Pulmonary: Effort: Pulmonary effort is normal. Breath sounds: Normal breath sounds. Genitourinary: Comments: Deferred, no concerns Musculoskeletal: Cervical back: Neck supple. No rigidity or tenderness. Right lower leg: No edema. Left lower leg: No edema. Lymphadenopathy: Cervical: No cervical adenopathy. Skin: General: Skin is warm and dry. Capillary Refill: Capillary refill takes less than 2 seconds. Comments: Excoriated discrete lesions to left of her nose, and on upper back, with linear hypopigmented scarring. No papules or pustules appreciated. Neurological: Mental Status: She is alert. Motor: No weakness. Coordination: Coordination normal. Deep Tendon Reflexes: Reflexes normal. Comments: She failed the 3 word recall. Psychiatric: Mood and Affect: Mood normal. Behavior: Behavior normal. Assessment and Plan: Patient seen today for Annual Wellness Visit. Preventive services counseling completed and noted in After Visit Summary. Randee was seen today for annual wellness visit and establish care. Orders placed: Orders Placed This Encounter Procedures ??? Mammo Screening Cad and Heriberto Bilateral ??? DXA Central Spine, Hip, and/or Whole Body (Generic) ??? Fecal Occult Blood, Immunoassay ??? Lipid Panel (Reflex Direct LDL) ??? Comprehensive metabolic panel (non-fasting) ??? TSH Morrison ??? Vitamin B12 ??? CBC (with Diff) ??? Folate, serum ??? Hemoglobin A1c Individualized counseling around health risk factors and appropriate referrals were made, including: [] Tobacco cessation (Referral to Tobacco cessation = [id number]) [] Safe alcohol use [] Fall risks (Referral to Falls Clinic = IXX932) [] Healthy sleep (Referral to Sleep Medicine = REF99) [] Nutritional counseling (Referral to Nutrition = REF50) [] Advanced Care Planning (Referral for ACP = QYM323) [] Need for driving assessment (Referral for Driving Assessment = ONN512) [x] Senior resources provided in After Visit Summary (Referral to Aging Resource Center = KOR251) ASSESSMENT AND PLAN (other conditions addressed): Diagnoses and all orders for this visit: Preventative health care - Hemoglobin A1c; Future; Expected date: 04/11/2021 Well 70 year old female with chronic conditions. Encounter for screening mammogram for malignant neoplasm of breast - Mammo Screening Cad and Heriberto Bilateral; Future; Expected date: 04/11/2021 Screening for malignant neoplasm of colon - Fecal Occult Blood, Immunoassay; Future; Expected date: 04/11/2021 Counseled on options. She prefers yearly FIT. Hyperlipidemia, unspecified hyperlipidemia type - Lipid Panel (Reflex Direct LDL); Future; Expected date: 04/11/2021 - Comprehensive metabolic panel (non-fasting); Future; Expected date: 04/11/2021 - TSH Morrison; Future; Expected date: 04/11/2021 Due for monitoring labs. Continue statin. Essential hypertension - atenoloL (Tenormin) 50 mg Tablet; Take 1 tablet by mouth daily. Appears borderline in clinic today. However she has lost weight this year and reports lower readings at home, so she may be on a higher dose of medications than needed. She endorses some fatigue withbeta sruthi use. Per history, no compelling indications for beta sruthi. Recommend continue HCTZ but taper atenolol to 50mg and check BP at home. Will ask RN to call her in 1-2 weeks with readings on the new dose. - Would add losartan or CCB rather than BB for her HTN management if needed. Cognitive change - TSH Morrison; Future; Expected date: 04/11/2021 - Vitamin B12; Future; Expected date: 04/11/2021 - CBC (with Diff); Future; Expected date: 04/11/2021 - Folate, serum; Future; Expected date: 04/11/2021 Unable to perform three word recall, and unable to draw clock with time 11:10. Draws [place], but unable to follow instructions to draw clock/watch face. Denies concerns about memory, just states, I'm not good at this stuff. Her drove her here today. - Unclear, as it is my first time meeting her, as to whether this is a change from her baseline cognitive function. - Needs MOCA at follow up visit. Age-related osteoporosis without current pathological fracture - DXA Central Spine, Hip, and/or Whole Body (Generic); Future; Expected date: 04/11/2021 Multiple excoriations Recommended diligent moisturizing with emollient (e.g. aquaphor, eucerin) after bathing and avoid scratching and picking the lesions she is concerned about; unable to assess what the bumps appear as, otherwise. Evidence of past excoriation on upper back suggestive of compulsive scratching. Follow up in 1-2 months for MOCA and BP check. Ale Brink DNP, COMPUTER SYSTEMS ADMINISTRATOR Family Medicine [facility] [place] [address]. Primary Care [phone] # [id number] documented in this encounter Plan of Treatment Not on file documented as of this encounter Visit Diagnoses Diagnosis Preventative health care Routine general medical examination at a health care facility Encounter for screening mammogram for malignant neoplasm of breast Other screening mammogram Screening for malignant neoplasm of colon Hyperlipidemia, unspecified hyperlipidemia type Essential hypertension Unspecified essential hypertension Cognitive change Other signs and symptoms involving cognition Age-related osteoporosis without current pathological fracture Senile osteoporosis Multiple excoriations Other and unspecified superficial injury of other, multiple, and unspecified sites, without mention of infection documented in this encounter Care Teams Special Needs Bus Driver Relationship Specialty Start Date End Date Ale Brink APRN [facility] [address] PCP - General Family Medicine 04/11/21 documented as of this encounter
--- OUTSIDE RECORDS SUMMARY | 2024-03-05 21:45 | XMS_ITS | Clinical Summary ---
Author Organization [facility] Address [address] [place] [address] Care Team Providers Care Lawn Service Supervisor Name Role Phone Unknown, Provider Primary Care Provider [phone] Social History Tobacco Use Types Packs/Day Years Used Date Smoking Tobacco: Never Assessed Sex and Gender Information Value Date Recorded Sex Assigned at Not on file Gender Identity Not on file Sexual Orientation Not on file Plan of Treatment Health Maintenance Due Date Last Done Comments Hepatitis C Screen 1950 RSV Immunization ( o r 60+ Years) (1 - 1-dose 60+ series) 2011 Fall Risk Screening 11/09/2016 COVID-19 Vaccine ( season) 2023 Care Teams Lawn Service Supervisor Relationship Specialty Start Date End Date Unknown, Provider, PCP - General 05/24/15
[2024-03-05 23:08] LABS: ALT 39 U/L (14-59); AST 31 U/L (15-37); Albumin 4.1 g/dL (3.4-5.0); Alkaline Phosphatase 126 U/L (46-116); Anion Gap 8.2 mmol/L (3-11); BUN 10 mg/dL (7-18); CO2 30.8 mmol/L (21.0-32.0); CREATININE 0.8 mg/dL (0.55-1.02); Calcium 9.4 mg/dL (8.5-10.1); Calculated LDL 82 mg/dL (<100); Chloride 92 mmol/L (98-107); Cholesterol 195 mg/dL (<200); Estimated GFR 78.24 (mL/min/1.73m2); Glucose 107 mg/dL (74-106); HDL Cholesterol 102 mg/dL (40-60); Potassium 3.5 mmol/L (3.5-5.1); Sodium 131 mmol/L (136-145); Total Protein 6.9 g/dL (6.4-8.2); Triglyceride 56 mg/dL (<150); Vitamin B12 131 pg/mL (193-986)
== END 2024-03-05 21:42 | disposition home or self-care (01) ==
LOC: NCHCN 21:41
PROVIDERS: PCP Family Medicine; Visit Provider Family Medicine
DX: I10 Essential (primary) hypertension (principal); E78.5 Hyperlipidemia, unspecified; E55.9 Vitamin D deficiency, unspecified; R41.3 Other amnesia
CPT/HCPCS: 80053; 80061; 85027; 82607

== ENCOUNTER 2024-04-18 01:22 | Outpatient (CLI) | payer MEDICARE, SELFPAY ==
--- OUTSIDE RECORDS SUMMARY | 2024-04-18 01:24 | XMS_ITS | Referral Summary ---
Author Organization [facility] Address [address] [place] [address] Care Team Providers Care Talent Specialist Name Role Phone Unknown, Provider Primary Care Provider [phone] Social History Tobacco Use Types Packs/Day Years Used Date Smoking Tobacco: Never Assessed Sex and Gender Information Value Date Recorded Sex Assigned at Not on file Gender Identity Not on file Sexual Orientation Not on file Plan of Treatment Not on file Care Teams Talent Specialist Relationship Specialty Start Date End Date Unknown, Provider, PCP - General 05/24/15
--- OUTSIDE RECORDS SUMMARY | 2024-04-18 01:24 | XMS_ITS | Encounter Summary ---
Author Organization [facility] Address [address] [place] [address] Care Team Providers Care Cattle Inspector Name Role Phone Unknown, Provider Primary Care Provider [phone] Encounter Details Date Type Department Care Team (Late st Contact Info) Description 04/15/2018 Results Only [facility] [phone] Joy Bui MD [address] [place] [phone] Social History Tobacco Use Types Packs/Day Years [...] ? FRIDA ELDER ? Accession #: ? [id number] ? : ? 1950 (Age: 67) ??F [...] and electronically signed by: ? Pennie Ibarra [facility](AS[facility]) ? Report ??Date: 04/23/2018 13:37 HPV with Pap Test ? Date Ordered: ? 04/23/2018 ? Status: ?? Signed Out ?Date Complete: ? 04/25/2018 ? By: ??System Interface ? Date Reported: ? 04/25/2018 ? Interpretation RESULT: Negative for HPV. No E6 or E7 mRNA is detected from HPV types 16,18,31,33,35, 39,45,51,52,56,58, 59,66, and 68 by windows 7 deployment lead mediated amplification. Comments Document reviewed and electronically signed by: ? System Interface ? Report date: 04/25/2018 By the signature above, the attending physician certifies that he/she has personally conducted a gross and/or microscopic examination of the described specimens and rendered or confirmed the above diagnosis. End of Report [facility] 04/15/2018 04/17/2018 Joy Bui MD PATHOLOGY ORDERABLES [facility] [address] [place] [address] documented in this encounter Visit Diagnoses Not on filedocumented in this encounter Care Teams Cattle Inspector Relationship Specialty Start Date End Date Unknown, Provider, PCP - General 05/24/15 documented as of this encounter
--- OUTSIDE RECORDS SUMMARY | 2024-04-18 01:24 | XMS_ITS | Encounter Summary ---
Author Organization [facility] Address [facility] [place] [address] Care Team Providers Care Computer Networker Name Role Phone Ale Brink APRN Primary Care Provider [phone] Encounter Details Date Type Department Care Team (Late st Contact Info) Description 04/12/2021 Notes Only Family Medicine at [address] [place] [address] Bety Bae RN Social History [...] place to sleep or slept in a long term (including now)? No 04/08/2021 Sex and Gender Information Value Date Recorded Sex Assigned at Female 04/08/2021 11:21 AM EDT Gender Identity Female 04/08/2021 11:21 AM EDT Sexual Orientation Straight 04/08/2021 11 :21 AM EDT documented as of this encounter Progress Notes * Beyt Bae RN - 04/12/2021 4:13 PM EDT Faxed labs and imaging orders to [facility]. documented in this encounter Plan of Treatment Upcoming Encounters Date Type Department Care Team (Late st Contact Info) Description 04/28/2024 1:00 PM EDT [place] [address] Luis Otero MD [facility] [place] [address] documented as of this encounter Visit Diagnoses Not on filedocumented in this encounter Care Teams Computer Networker Relationship Specialty Start Date End Date Ale Brink APRN [facility] [address] [facility] [address] PCP - General Family Medicine 04/11/21 documented as of this encounter
--- OUTSIDE RECORDS SUMMARY | 2024-04-18 01:24 | XMS_ITS | Clinical Summary ---
Author Organization [facility] Address [address] [place] [address] Care Team Providers Care Arc And Gas Welder Name Role Phone Unknown, Provider Primary Care Provider Social History Tobacco Use Types Packs/Day Years [...] 2011 Fall Risk Screening 11/09/2016 COVID-19 Vaccine (2022-24 season) 2023 Care Teams Arc And Gas Welder Relationship Specialty Start Date End Date Unknown, Provider, PCP - General 05/24/15
--- OUTSIDE RECORDS SUMMARY | 2024-04-18 01:24 | XMS_ITS | Encounter Summary ---
[place] [address] Care Team Providers Care Sales Executive Name Role Phone Skyla Bui MD Primary Care Provider [phone] Encounter Details Date Type Department Care Team (Late st Contact Info) Description 10/27/2020 Telephone Family Medicine at [facility] [address] [place] [address] Elizabeth Mandujano Social History Tobacco Use Types Packs/Day Years Used Date Smoking Tobacco: Never Assessed Sex and Gender Information Value Date Recorded Sex Assigned at Female 04/08/2021 11:21 AM EDT Gender Identity Female 04/08/2021 11:21 AM EDT Sexual Orientation Straight 04/08/2021 11 :21 AM EDT documented as of this encounter Plan of Treatment Upcoming Encounters Date Type Department Care Team (Late st Contact Info) Description 04/28/2024 1:00 PM EDT Office [place] [address] Luis Otero MD [facility] [place] [address] documented as of this encounter Visit Diagnoses Not on filedocumented in this encounter Care Teams Sales Executive Relationship Specialty Start Date End Date Skyla Bui MD [address] [place] [address] PCP - General Family Medicine 01/12/17 04/10/21 documented as of this encounter
--- OUTSIDE RECORDS SUMMARY | 2024-04-18 01:24 | XMS_ITS | Encounter Summary ---
[place] [address] Care Team Providers Care Mold Maintenance Technician Name Role Phone Ale Brink APRN Primary Care Provider [phone] Reason for Referral * Consultation (Routine) - Authorized Specialty Diagnoses / Procedures Referred By Lori t Referred To Contact Neurology Diagnoses Other amnesia Skyla Bui MD [address] [place] [address] [facility] [address] [place] [phone] Referral ID Status Reason Start Date Expiration Date Visits Requested Visits Authorized [id number] Authorized Consult, Test & Treat PCP Updated and/or Approved 03/05/2024 03/05/2025 6 6 Encounter Details Date Type Department Care Team (Late st Contact Info) Description 03/21/2024 Transcribe Orders eDH Incoming Referrals [phone] Skyla Bui MD [address] [place], [place] [id number] Other amnesia Social History Tobacco Use Types Packs/Day Years [...] place to sleep or slept in a care home (including now)? No 04/08/2021 Sex and Gender Information Value Date Recorded Sex Assigned at Female 04/08/2021 11:21 AM EDT Gender Identity Female 04/08/2021 11:21 AM EDT Sexual Orientation Straight 04/08/2021 11 :21 AM EDT documented as of this encounter Plan of Treatment Upcoming Encounters Date Type Department Care Team (Late st Contact Info) Description 04/28/2024 1:00 PM EDT [place] [id number] Luis Otero MD [facility] [place] [address] Scheduled Referrals Name Type Priority Associated Diagnoses Orde r Schedule Referral to Neurology Outpatient Referral Routine Other amnesia Ordered: 03/21/2024 documented as of this encounter Visit Diagnoses Diagnosis Other amnesia documented in this encounter Care Teams Mold Maintenance Technician Relationship Specialty Start Date End Date Ale Brink APRN [facility] [place] [address] PCP - General Family Medicine 04/11/21 documented as of this encounter
--- OUTSIDE RECORDS SUMMARY | 2024-04-18 01:24 | XMS_ITS | Encounter Summary ---
Author Organization [facility] Address [facility] [place] [address] Care Team Providers Care Tailer In Name Role Phone Ale Brink APRN Primary Care Provider [phone] Encounter Details Date Type Department Care Team (Late st Contact Info) Description 04/20/2021 Telephone Family Medicine at [address] [place] [address] Brittney Lopes Social History Tobacco [...] 1:00 PM EDT Office [place] [address] Luis Otero MD [facility] [place] [address] documented as of this encounter Visit Diagnoses Not on filedocumented in this encounter Care Teams Tailer In Relationship Specialty Start Date End Date Ale Brink APRN [facility] [place] [address] PCP - General Family Medicine 04/11/21 documented as of this encounter
--- OUTSIDE RECORDS SUMMARY | 2024-04-18 01:24 | XMS_ITS | Data Portability ---
Author Organization [facility], [facility] Address [address] [place] [address] Assessment Encounter Date Assessment Date Assessment LastModified by Organization Details LastModified Time 03/05/2024 03/05/2024 The total time devoted to today's encounter, including both the cpgf-vx-ooul time with the patient and/or family/caregi katt and lkk-pzau-rb-f kvng time I personally spent is 45 minutes. [email or web address] Not available 03/05/2024 16:17:58 Plan of Treatment Reminders Order Date Submit Date Provider Last Modified By Organization Details Last Modified Time Details Appointments Follow Up 20 2023 03:50P M Not available Not available Not available Lab noninvasi ve colorecta l cancer DNA + occult blood screening , QL, stool 2023 024 [facility] (Cologuard Orders Only), [address], [address], [place], [address], 09/04/2023 18:42:08 vitamin B12, serum 2023 024 [facility] ([facility]), [address] [place] [address] [place], [address], 03/06/2024 10:15:40 lipid panel, serum 2023 024 [facility] ([facility]), [address] [place] [address] [place], [address], 03/06/2024 10:15:27 CBC 2023 [facility] ([facility]), [address] [place] [address] [place], [address], 03/05/2024 21:40:48 vitamin D, 25-hydrox y, total, serum 2023 [email or web address] [facility] ([facility]), [address] [place] [address] [place], [address], 03/12/2024 08:31:36 CMP, serum or plasma - 1T, 1P 2023 [facility] ([facility]), [address] [place] [address] [place], [address], 03/05/2024 23:13:[address] referral 2023 024 [email or web address] [facility] Neurology Department, [address] [place], [address], 04/17/2024 13:08:00 Procedures None recorded. Surgeries None recorded. Imaging None recorded. Medication Orders mirtazapi ne 15 mg tablet 2023 024 [facility], [address] [place], [address], 08/03/2023 16:45:39 hydrochlo rothiazid e 25 mg tablet 2023 024 [facility], [address] [place], [address], 08/03/2023 16:45:39 atenolol 100 mg tablet 2023 024 [facility], [address] [place], [address], 08/03/2023 16:45:37 atorvasta tin 10 mg tablet 2023 024 [facility], [address] [place], [address], 08/03/2023 16:45:37 Patient TargetsNo targets recorded. Patient InstructionsNo instructions recorded. Reason for Referral Neurologist Referral for Mem ory impairment Referring Physician: Skyla Galindo, Family Medicine, Encounter Date: 03/05/2024 Results Created Date Observation Date Name Description Value Unit Range Abnormal Flag Note LastModifiedBy Organization Detail LastModifiedTime 08/01/19 24 08/01/2023 COMPL ETE BLOOD COUNT W/DIF F WBC 5.69 10_3/ uL 4.4-10 .8 normal Not Available [address] [place], [address] 08/01/2023 10:58:44 08/01/19 24 08/01/2023 COMPL ETE BLOOD COUNT W/DIF F RBC 4.52 10_6/ uL 3.93-5 .22 normal Not Available [address] [place], [address] 08/01/2023 10:58:44 08/01/19 24 08/01/2023 COMPL ETE BLOOD COUNT W/DIF F HGB 14.8 g/dL 11.2-1 5.7 normal Not Available [address] [place], [address] 08/01/2023 10:58:44 08/01/19 24 08/01/2023 COMPL ETE BLOOD COUNT W/DIF F HCT 43.0 % 36.0-4 6.0 normal Not Available [address] [place], [address] 08/01/2023 10:58:44 08/01/19 24 08/01/2023 COMPL ETE BLOOD COUNT W/DIF F MCV 95 fL 80-95 normal Not Available Emily leggett [address] [place], [address] 08/01/2023 10:58:44 08/01/19 24 08/01/2023 COMPL ETE BLOOD COUNT W/DIF F MCH 32.7 pg 27.0-3 3.0 normal Not Available [address] [place], [address] 08/01/2023 10:58:44 08/01/19 24 08/01/2023 COMPL ETE BLOOD COUNT W/DIF F MCHC 34.4 % 32.0-3 6.0 normal Not Available [address] [place], [address] 08/01/2023 10:58:44 08/01/19 24 08/01/2023 COMPL ETE BLOOD COUNT W/DIF F RDW 14.6 % 11.7-1 4.6 normal Not Available [address] [place], [address] 08/01/2023 10:58:44 08/01/19 24 08/01/2023 COMPL ETE BLOOD COUNT W/DIF F platelet count 155 10_3/ uL 130-40 0 normal Not Available [address] [place], [address] 08/01/2023 10:58:44 08/01/19 24 08/01/2023 COMPL ETE BLOOD COUNT W/DIF F MPV 8.5 fL 8.0-11 .0 normal Not Available [address] [place], [address] 08/01/2023 10:58:44 08/01/19 24 08/01/2023 COMPL ETE BLOOD COUNT W/DIF F neutrophils % 62.0 Not Available [address] [place], [address] 08/01/2023 10:58:44 08/01/19 24 08/01/2023 COMPL ETE BLOOD COUNT W/DIF F lymphocytes % 22.1 Not Available [address] [place], [address] 08/01/2023 10:58:44 08/01/19 24 08/01/2023 COMPL ETE BLOOD COUNT W/DIF F monocytes % 6.7 Not Available [address] [place], [address] 08/01/2023 10:58:44 08/01/19 24 08/01/2023 COMPL ETE BLOOD COUNT W/DIF F eosinophils % 7.9 Not Available [address] [place], [address] 08/01/2023 10:58:44 08/01/19 24 08/01/2023 COMPL ETE BLOOD COUNT W/DIF F basophils % 0.9 Not Available [address] [place], [address] 08/01/2023 10:58:44 08/01/19 24 08/01/2023 COMPL ETE BLOOD COUNT W/DIF F immature grans % 0.4 Not Available [address] [place], [address] 08/01/2023 10:58:44 08/01/19 24 08/01/2023 COMPL ETE BLOOD COUNT W/DIF F nucleated RBC 0.0 % 0.0-0. 3 normal Not Available [address] [place], [address] 08/01/2023 10:58:44 08/01/19 24 08/01/2023 COMPL ETE BLOOD COUNT W/DIF F absolute neutrophil count 3.53 10_3/ uL 1.2-6. 7 normal Not Available [address] [place], [address] 08/01/2023 10:58:44 08/01/19 24 08/01/2023 COMPL ETE BLOOD COUNT W/DIF F absolute lymphocyte count 1.26 10_3/ uL 1.2-3. 4 normal Not Available [address] [place], [address] 08/01/2023 10:58:44 08/01/19 24 08/01/2023 COMPL ETE BLOOD COUNT W/DIF F absolute monocyte count 0.38 10_3/ uL 0.1-0. 8 normal Not Available [address] [place], [address] 08/01/2023 10:58:44 08/01/19 24 08/01/2023 COMPL ETE BLOOD COUNT W/DIF F absolute eosinophil count 0.45 10_3/ uL 0.0-0. 7 normal Not Available [address] [place], [address] 08/01/2023 10:58:44 08/01/19 24 08/01/2023 COMPL ETE BLOOD COUNT W/DIF F absolute basophil count 0.05 10_3/ uL 0.0-0. 2 normal Not Available [address] [place], [address] 08/01/2023 10:58:44 08/01/19 24 08/01/2023 COMPR EHENS TONNY METAB OLIC PANEL calcium 9.4 mg/dL 8.5-10 .1 normal Not Available [address] [place], [address] 08/01/2023 11:38:49 08/01/19 24 08/01/2023 COMPR EHENS TONNY METAB OLIC PANEL glucose 102 mg/dL 74-106 normal Not Available Emily leggett [address] [place], [address] 08/01/2023 11:38:49 08/01/19 24 08/01/2023 COMPR EHENS TONNY METAB OLIC PANEL BUN 4 mg/dL 7-18 low Not Available Emily [address] [facility] [place], [address] 08/01/2023 11:38:49 08/01/19 24 08/01/2023 COMPR EHENS TONNY METAB OLIC PANEL creatinine 0.8 mg/dL 0.55-1 .02 normal Not Available [address] [place], [address] 08/01/2023 11:38:49 08/01/19 24 08/01/2023 COMPR EHENS TONNY METAB OLIC PANEL estimated GFR 78.72 mL/min /1.73m 2 The eGFR is calcu lated from a serum creat inine using the CKD-E PI 2020 equat ion. Other varia bles requi red for the equat ion are gende r and age; this equat ion does not inclu de a race coeff icien t. This equat ion has simil ar overa ll perfo rmanc e to previ ous equat ions excep t value s may diffe r, in parti cular , in patie nts with highe r value s of eGFR and young er-ag ed adult s. Not Available [address] [place], [address] 08/01/2023 11:38:49 08/01/19 24 08/01/2023 COMPR EHENS TONNY METAB OLIC PANEL total protein 6.7 g/dL 6.4-8. 2 normal Not Available [address] [place], [address] 08/01/2023 11:38:49 08/01/19 24 08/01/2023 COMPR EHENS TONNY METAB OLIC PANEL albumin 4.0 g/dL 3.4-5. 0 normal Not Available [address] [place], [address] 08/01/2023 11:38:49 08/01/19 24 08/01/2023 COMPR EHENS TONNY METAB OLIC PANEL bilirubin, total 0.7 mg/dL 0.2-1. 0 normal Not Available [address] [place], [address] 08/01/2023 11:38:49 08/01/19 24 08/01/2023 COMPR EHENS TONNY METAB OLIC PANEL alk phos 87 U/L 46-116 normal Not Available [address] [place], [address] 08/01/2023 11:38:49 08/01/19 24 08/01/2023 COMPR EHENS TONNY METAB OLIC PANEL sodium 129 mmol/ L 136-14 5 low Not Available [address] [place], [address] 08/01/2023 11:38:49 08/01/19 24 08/01/2023 COMPR EHENS TONNY METAB OLIC PANEL potassium 3.1 mmol/ L 3.5-5. 1 low Not Available [address] [place], [address] 08/01/2023 11:38:49 08/01/19 24 08/01/2023 COMPR EHENS TONNY METAB OLIC PANEL chloride 92 mmol/ L 98-107 low Not Available [address] [place], [address] 08/01/2023 11:38:49 08/01/19 24 08/01/2023 COMPR EHENS TONNY METAB OLIC PANEL CO2 29.9 mmol/ L 21.0-3 2.0 normal Not Available [address] [place], [address] 08/01/2023 11:38:49 08/01/19 24 08/01/2023 COMPR EHENS TONNY METAB OLIC PANEL anion gap 7.1 mmol/ L 3-11 normal Not Available [address] [place], [address] 08/01/2023 11:38:49 08/01/19 24 08/01/2023 COMPR EHENS TONNY METAB OLIC PANEL AST 25 U/L 15-37 normal Not Available Emily [address] [place], [address] 08/01/2023 11:38:49 08/01/19 24 08/01/2023 COMPR EHENS TONNY METAB OLIC PANEL ALT 20 U/L 14-59 normal Not Available Emily [address] [place], [address] 08/01/2023 11:38:49 08/01/19 24 08/01/2023 LIPID 2 cholesterol 174 mg/dL <200 Not Available [address] [place], [address] 08/01/2023 11:38:50 08/01/19 24 08/01/2023 LIPID 2 triglyceride 44 mg/dL <150 Not Available [address] [place], [address] 08/01/2023 11:38:50 08/01/19 24 08/01/2023 LIPID 2 HDL cholesterol 108 mg/dL 40-60 Not Available Angela [address] [place], [address] 08/01/2023 11:38:50 08/01/19 24 08/01/2023 LIPID 2 calculated LDL 58 mg/dL <100 Natio nal Tami stero l Educa tion Progr am (NCEP -ATPI II) class ifica tions : Tami stero l <200 mg/dL Ese able Tami stero l 200-2 39 mg/dL Borde rline High Tami stero l >or=2 40 mg/dL High HDL <40 mg/dL Low HDL >or=6 0 mg/dL High LDL <100 mg/dL Optim al LDL 100-1 29 mg/dL Near Optim al/Ab ove Optim al LDL 130-1 59 mg/dL Borde rline High LDL 160-1 89 mg/dL High LDL >or=1 90 mg/dL Very High *The above refer ence range is for adult s 18 years or older . Not Available [address] [place], [address] 08/01/2023 11:38:50 08/01/19 24 08/01/2023 TSH TSH 1.97 uIU/m L 0.36-3 .74 normal NOTE: Supra -phys iolog ic doses of Bioti n(B7) may cause false negat tonny resul ts. Not Available [address] [place], [address] 08/01/2023 11:38:51 08/01/19 24 08/01/2023 FREE T4 free T4 1.07 NG/dL 0.76-1 .46 normal Not Available [address] [facility] [place], [address] 08/01/2023 11:38:51 08/01/19 24 08/01/2023 VITAM IN D 25 TOTAL vitamin D 25 total 76.4 NG/mL 30-100 normal Refer ence Guide lines : Defic ient: <10 ng/ml Insuf ficie nt: 10-30 ng/ml Suffi cient : 30-10 0 ng/ml Toxic : >100 ng/ml Not Available [address] [place], [address] 08/01/2023 11:48:48 08/23/19 24 08/23/2023 COLOG UARD cologuard result reportable NEGATI VE negati ve normal NEGAT TONNY TEST RESUL T. A negat tonny Colog uard resul t indic ates a low likel ihood that a color ectal cance r (CRC) or advan birdie adeno ma (joaquin omato us polyp s with more advan birdie pre-m align ant featu res) is prese nt. The [facility] e that a perso n with a negat tonny Colog uard test has a color ectal cance r is less than 1 in 1500 (nega tive predi ctive value >99.9 %) or has an advan birdie adeno ma is less than 5.3% (nega tive predi ctive value 94.7% ). These data are based on a prosp ectiv e cross -sect ional study of 10,00 0 indiv idual s at [place] [facility] risk for color ectal cance r who were scree maría with both Colog uard and colon oscop y. (Impe liz T. et al, N Engl J Med 2014; 370(1 4):12 86-12 97) The tez l value (refe rence range ) for this assay is negat tonny. COLOG UARD RE-SC REENI NG RECOM MENDA TION: Perio dic color ectal cance r scree kevin is an impor tant part of preve ntive healt hcare for asymp tomat ic indiv idual s at [place] ge risk for color ectal cance r. Follo wing a negat tonny Colog uard resul t, the Ameri can Cance r Socie ty and U.S. Multi -Soci ety Task Force scree kevin guide lines recom mend a Colog uard re-sc reeni ng inter carlos of 3 years . Refer ences : Ameri can Cance r Socie ty Guide line for Color ectal Cance r Scree kevin: https ://gabbi w.can cer.o rg/ca ncer/ colon -rect al-ca ncer/ detec tion- diagn osis- stagi ng/ac s-rec ommen datio ns.ht ml.; Johnathon IVVEROS, Oscar kennedy CR, Susu CARRANZA, Color ectal Cance r Scree kevin: Recom menda tions for Physi cians and Patie nts from the U.S. Multi -Soci ety Task Force on Color ectal Cance r Scree kevin , Gabriel Melgar Gastr oente rolog y 2017; 112:1 016-1 030. TEST DESCR IPTIO N: [place] site algor ithmi c belkys sis of stool DNA-b iomar kers with hemog lobin immun oassa y. Quant itati ve value s of indiv idual bioma rkers are not repor table and are not assoc iated with indiv idual bioma rker resul t refer ence range s. Colog uard is inten ded for color ectal cance r scree kevin of adult s of eithe r sex, 45 years or older , who are at [facility] for color ectal cance r (CRC) . Colog uard has been appro radha for use by the U.S. FDA. The perfo rmanc e of Colog uard was estab lishe d in a cross secti onal study of [facility] adult s aged 50-84 . Colog uard perfo rmanc e in patie nts ages 45 to 49 years was estim ated by sub-g roup belkys sis of near- age group s. Colon oscop ies perfo rmed for a posit tonny resul t may find as the most clini yamilet signi ficcarlos t ashlyn n: color ectal cance r [4.0% ], advan birdie adeno ma (incl uding sessi le suzanne oj polyp s great er than or equal to 1cm diame ter) [20%] or non- advan birdie adeno ma [31%] ; or no color ectal neopl matthew [45%] . These estim ates are deriv ed from a prosp ectiv e cross -sect ional scree [facility] study of 10,00 0 indiv idual s at [facility] risk for color ectal cance r who were scree maría with both Colog uard and colon oscop y. (Bradly Nickerson al, N Engl J Med 2014; 370(1 4):12 86-12 97.) Colog uard may produ ce a false negat tonny or false posit tonny resul t (no color ectal cance r or preca ncero us polyp prese nt at colon oscop y follo w up). A negat tonny Colog uard test resul t does not guara ntee the absen ce of CRC or advan birdie adeno ma (pre- cance r). The curre nt Colog uard scree kevin inter carlos is every 3 years . (Surjit Palma r Socie ty and U.S. Multi -Soci ety Task Force ). Colog uard perfo rmanc e data in a 10,00 0 patie nt pivot al study using colon oscop y as the refer ence metho d can be acces sed at the follo wing locat ion: www.e xactl abs.c om/re sults . Addit ional descr iptio n of the Colog uard test proce ss, warni ngs and preca ution s can be found at www.c ologu satish.c om. Not Available [facility] (Cologuard Orders Only) [address], [place], [address], 09/04/2023 18:42:08 03/05/20 24 03/05/2024 COMPL ETE BLOOD COUNT NO DIFF WBC 8.94 10_3/ uL 4.4-10 .8 normal Not Available [address] [facility] [place], [address] 03/05/2024 21:40:48 03/05/20 24 03/05/2024 COMPL ETE BLOOD COUNT NO DIFF RBC 4.11 10_6/ uL 3.93-5 .22 normal Not Available [address] [place], [address] 03/05/2024 21:40:48 03/05/20 24 03/05/2024 COMPL ETE BLOOD COUNT NO DIFF HGB 13.9 g/dL 11.2-1 5.7 normal Not Available [address] [place], [address] 03/05/2024 21:40:48 03/05/20 24 03/05/2024 COMPL ETE BLOOD COUNT NO DIFF HCT 41.0 % 36.0-4 6.0 normal Not Available [address] [place], [address] 03/05/2024 21:40:48 03/05/20 24 03/05/2024 COMPL ETE BLOOD COUNT NO DIFF MCV 100 fL 80-95 high Not Available Emily leggett [address] [place], [address] 03/05/2024 21:40:48 03/05/20 24 03/05/2024 COMPL ETE BLOOD COUNT NO DIFF MCH 33.8 pg 27.0-3 3.0 high Not Available [address] [place], [address] 03/05/2024 21:40:48 03/05/20 24 03/05/2024 COMPL ETE BLOOD COUNT NO DIFF MCHC 33.9 % 32.0-3 6.0 normal Not Available [address] [place], [address] 03/05/2024 21:40:48 03/05/20 24 03/05/2024 COMPL ETE BLOOD COUNT NO DIFF RDW 12.5 % 11.7-1 4.6 normal Not Available [address] [place], [address] 03/05/2024 21:40:48 03/05/20 24 03/05/2024 COMPL ETE BLOOD COUNT NO DIFF platelet count 234 10_3/ uL 130-40 0 normal Not Available [address] [place], [address] 03/05/2024 21:40:48 03/05/20 24 03/05/2024 COMPL ETE BLOOD COUNT NO DIFF MPV 9.1 fL 8.0-11 .0 normal Not Available [address] [place], [address] 03/05/2024 21:40:48 03/05/20 24 03/05/2024 COMPR EHENS TONNY METAB OLIC PANEL calcium 9.4 mg/dL 8.5-10 .1 normal Not Available [address] [place], [address] 03/05/2024 23:13:06 03/05/20 24 03/05/2024 COMPR EHENS TONNY METAB OLIC PANEL glucose 107 mg/dL 74-106 high Not Available Emily leggett [address] [place], [address] 03/05/2024 23:13:06 03/05/20 24 03/05/2024 COMPR EHENS TONNY METAB OLIC PANEL BUN 10 mg/dL 7-18 normal Not Available Emily leggett [address] [place], [address] 03/05/2024 23:13:06 03/05/20 24 03/05/2024 COMPR EHENS TONNY METAB OLIC PANEL creatinine 0.8 mg/dL 0.55-1 .02 normal Not Available [address] [place], [address] 03/05/2024 23:13:06 03/05/20 24 03/05/2024 COMPR EHENS TONNY METAB OLIC PANEL estimated GFR 78.24 mL/min /1.73m 2 The eGFR is calcu lated from a serum creat inine using the CKD-E PI 2020 equat ion. Other varia bles requi red for the equat ion are gende r and age; this equat ion does not inclu de a race coeff icien t. This equat ion has simil ar overa ll perfo rmanc e to previ ous equat ions excep t value s may diffe r, in parti cular , in patie nts with highe r value s of eGFR and young er-ag ed adult s. Not Available [address] [place], [address] 03/05/2024 23:13:06 03/05/20 24 03/05/2024 COMPR EHENS TONNY METAB OLIC PANEL total protein 6.9 g/dL 6.4-8. 2 normal Not Available [address] [place], [address] 03/05/2024 23:13:06 03/05/20 24 03/05/2024 COMPR EHENS TONNY METAB OLIC PANEL albumin 4.1 g/dL 3.4-5. 0 normal Not Available [address] [place], [address] 03/05/2024 23:13:06 03/05/20 24 03/05/2024 COMPR EHENS TONNY METAB OLIC PANEL bilirubin, total 0.50 mg/dL 0.2-1. 0 normal Not Available [address] [place], [address] 03/05/2024 23:13:06 03/05/20 24 03/05/2024 COMPR EHENS TONNY METAB OLIC PANEL alk phos 126 U/L 46-116 high Not Available [address] [place], [address] 03/05/2024 23:13:06 03/05/20 24 03/05/2024 COMPR EHENS TONNY METAB OLIC PANEL sodium 131 mmol/ L 136-14 5 low Not Available [address] [place], [address] 03/05/2024 23:13:06 03/05/20 24 03/05/2024 COMPR EHENS TONNY METAB OLIC PANEL potassium 3.5 mmol/ L 3.5-5. 1 normal Not Available [address] [place], [address] 03/05/2024 23:13:06 03/05/20 24 03/05/2024 COMPR EHENS TONNY METAB OLIC PANEL chloride 92 mmol/ L 98-107 low Not Available [address] [place], [address] 03/05/2024 23:13:06 03/05/20 24 03/05/2024 COMPR EHENS TONNY METAB OLIC PANEL CO2 30.8 mmol/ L 21.0-3 2.0 normal Not Available [address] [place], [address] 03/05/2024 23:13:06 03/05/20 24 03/05/2024 COMPR EHENS TONNY METAB OLIC PANEL anion gap 8.2 mmol/ L 3-11 normal Not Available [address] [place], [address] 03/05/2024 23:13:06 03/05/20 24 03/05/2024 COMPR EHENS TONNY METAB OLIC PANEL AST 31 U/L 15-37 normal Not Available Emily leggett [address] [place], [address] 03/05/2024 23:13:06 03/05/20 24 03/05/2024 COMPR EHENS TONNY METAB OLIC PANEL ALT 39 U/L 14-59 normal Not Available Emily leggett [address] [place], [address] 03/05/2024 23:13:06 03/05/20 24 03/05/2024 LIPID 2 cholesterol 195 mg/dL <200 Not Available [facility] ([facility]) [address] [place] [address] [place], [address], 03/05/2024 23:13:07 03/05/20 24 03/05/2024 LIPID 2 triglyceride 56 mg/dL <150 Not Available [facility] ([facility]) [address] [place] [address] [place], [address], 03/05/2024 23:13:07 03/05/20 24 03/05/2024 LIPID 2 HDL cholesterol 102 mg/dL 40-60 Not Available [facility] ([facility]) [address] [place] [address] [place], [address], 03/05/2024 23:13:07 03/05/20 24 03/05/2024 LIPID 2 calculated LDL 82 mg/dL <100 Natio nal Tami stero l Educa tion Progr am (NCEP -ATPI II) class ifica tions : Tami stero l <200 mg/dL Ese able Tami stero l 200-2 39 mg/dL Borde rline High Tami stero l >or=2 40 mg/dL High HDL <40 mg/dL Low HDL >or=6 0 mg/dL High LDL <100 mg/dL Optim al LDL 100-1 29 mg/dL Near Optim al/Ab ove Optim al LDL 130-1 59 mg/dL Borde rline High LDL 160-1 89 mg/dL High LDL >or=1 90 mg/dL Very High *The above refer ence range is for adult s 18 years or older . Not Available [facility] ([facility]) [address] [place] [address] [place], [address], 03/05/2024 23:13:07 03/05/20 24 03/05/2024 VITAM IN B12 vitamin B12 131 pg/mL 193-98 6 low Not Available [facility] ([facility]) [address] [place] [address] [place], [address], 03/05/2024 23:13:07 07/21/20 23 07/20/2023 mammo graph y imagi ng repor krunal hector Name: Luz Maria Linder Unit #: [id number] Loc: DI Orderi ng Provid er: Skyla Galindo Accoun t #: [id number] Status : REG CLI Primar y Care Provid er: Skyla Galindo Date of Exam: Sex: F Admiss ion [...] C or D implie s that the patidelonte t has dense breast tissue . Dense breast tissue is very common and is not abnorm al but dense breast tissue can make it harder to find cancer on a mammog mic. Also, dense breast tissue may increa se their breast cancer risk. This inform ation about the result of the mammog mic report was provid ed to the patidelonte t to raise their awaren ess. Use [...] letter notify ing them of these result s. Ordere d By: Skyla Galindo CC: ------ ------ ------ ------ ------ ------ [...] this report in error, please notify us immedi elvinly at and return the origin al report to us at the addres s above. Thank- you. [email or web address] [facility] [address], [place], [address] 02/12/2024 13:27:31 04/14/20 24 09/25/2022 imagi ng/di frank tic resul t No observ ation record ed. [email or web address] Not Available 04/14 04:41:55 Result Notes None recorded. Problems Name Problem SNOMED Code Status Onset Date Resolution Date Notes Provider Name and Address Organization Details Recorded Time Canus e present 710390378 Active 201504/17/20 18 - Comments only - Skyla Galindo MD - These are getting less over time. Problem Code: N95.1; Problem Code Type: ICD-10; Not Available Formerly [facility] 3 05:13:45 Adult health examinat sasha Active 201508/24/19 23 - Comments only - Skyla Galindo MD - Randee johnson is a healthy active 71-year- old female here for general well exam. Overall she is feeling well. She reports she eats a healthy diet she exercise s regularl y. Her weight has been stable. She denies any change in her hearing she does see her eye doctor and dentist as recommen ded. She takes her medicati ons as prescrib ed. Problem Code: Z00.00; Problem Code Type: ICD-10; Not Available [facility] 3 05:13:45 Rosacea [id number] Active 201501/12/20 17 - Comments only - Skyla Galindo MD - Refer to dermatol ogy. Problem Code: L71.9; Problem Code Type: ICD-10; Not Available [facility] 3 05:13:45 [facility] hyperten annabelle 01141863 Active 201508/24/19 23 - Comments only - Skyla Galindo MD - Blood pressure stable no changes were made today. 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 We discusse d using NSAID and would not want to take them. 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 Problem Code: H04.129; Problem Code Type: ICD-10; Not Available [facility] 3 05:13:45 Vitamin D deficien cy 59571136 Active 201501/12/20 17 - Comments only - Skyla Galindo MD - Patient Vitamin D is still low. She will start 2000IUs a day. Problem Code: E55.9; Problem Code Type: ICD-10; Not Available [facility] 3 05:13:45 Hyperlip idemia 42695309 Active 201608/24/19 23 - Comments only - Skyla Galindo MD - Patient' s choleste rols been controll ed no changes were made today. Problem Code: E78.5; Problem Code Type: ICD-10; Not Available [facility] 3 05:13:45 Screenin g for osteopor osis Active 2017 Problem Code: Z13.820; Problem Code Type: ICD-10; Not Available [facility] 3 05:13:46 Screenin g mammogra phy Active 201802/15/20 19 - Comments only - Skyla Galindo MD - Patient is way overdue for her mammogra m we will go ahead and get that schedule d. Problem Code: Z12.31; Problem Code Type: ICD-10; Not Available [facility] 3 05:13:46 Disorder of skin and/or subcutan eous tissue 25380980 Active 201805/11/20 21 - Comments only - Skyla Galindo MD - The lesion on her nose really look more like rosacea than any other concern. Recommen d she stop picking at the little pimples and let it heal up. She does have a prescrip tion for Cleocin if she can continue to use that. Problem Code: L98.9; Problem Code Type: ICD-10; Not Available [facility] 3 05:13:46 Chronic rhinitis 61847537 Active 202208/24/19 23 - Comments only - Sykla Galindo MD - Patient' s biggest concern today is that she has a chronic nasal congesti on and a lot of posterio r nasal drip that causes a cough at night and she coughs a lot during the day. Her lungs are clear and there is no sign of any infectio n. Her nasal passages are somewhat swollen. She is using a nasal spray that is similar to Afrin. Discusse d with her that that causes a lot of of rebound and this is not a good choice. We will put her on some Flonase she can take 1 spray each side twice a day. Cautione d her that is going to take a while for that rebound to wear off and she may have a lot of nasal congesti on for the next week or 2. She can try some Tessalon Perles to see if that helps quieted down for her. She had been trying some over-the -counter guaifene sin which was not particul codey helpful. She does use a very dry heat recommen d that they put a humidifi er in their home. Especial ly where they sleep. She can gargle with warm water and salt as well. Problem Code: J31.0; Problem Code Type: ICD-10; Not Available [facility] 3 05:13:46 Viral screenin g Completed 201805/22/2019 Problem Code: Z11.59; Problem Code Type: ICD-10; Not Available [facility] 3 05:14:01 Hypergly cemia 02983629 Completed 201501/11/2017 Problem Code: R73.9; Problem Code Type: ICD-10; Not Available [facility] 3 05:14:05 Unintent ional weight loss 227091992 Active 2022 JOSE M DENNISON RN [facility], [place] - [facility]. 3 12:35:41 Screenin g for cancer Active 2022 Problem Code: Z12.10; Problem Code Type: ICD-10; Not Available [facility] 4 05:36:54 Abnormal weight loss 980048254 Active 202204/20/20 23 - Comments only - Skyla Galindo MD - Patient reports that she is here because she has had weight loss. She reports that her signific ant other is concerne d because she feels that she continue s to eat a normal healthy diet but she is losing weight. She reports that his concern is that her memory is sleep slipping . She reports that she eats fine. Would have her do a food diary she is going to write down what she is eating several days a week. She will bring those logs in with her when she comes in for her well exam. We will go ahead and get her schedule d for a colonosc opy for which she is overdue. Discusse d with her that week she really needs to come in for complete well exam so we can evaluate make sure there is nothing else going on. We will go ahead and check her lipids CMP CBC vitamin D level. We will also need to add a TSH T4 because of the weight loss. Problem Code: R63.4; Problem Code Type: ICD-10; [facility] 05:36:[facility] Feces-ba sed colorect al cancer DNA screenin g Active 2023 TONYA MCCOY [facility], [place] - [facility] 13:44:45 Memory impairme nt 924068001 Active 2023 SKYLA GALINDO MD [address], [place], [address] , [place] - [facility] 16:14:12 Problem Notes None recorded. Procedures Surgical History None recorded. Imaging Results Imaging Date Name Status LastModified by Organiz ation Details LastModified Time 07/20/2023 mammography imaging report completed [email or web address] [facility] [address] , [place], [address] 02/12/2024 13:27:31 09/25/2022 imaging/diagnos tic result completed [email or web address] Information not available 04/14/2024 04:41:55 Procedure Notes None recorded. Medical Equipment None Reported. Medications Name Sig Start Date Stop Date Status Note LastModified by Organization Details LastModified Time Prescriptio n - Renewal active refil ls[Rx Rsp] Not Available Not Available Not Available atorvastati n 10 mg tablet Take 1 [...] Not Available Not Available Not Available Vitamin B-12 1,000 mcg tablet Take 1 tablet twice a day by oral route. 2023 active Not Available Not Available Not Avai lable Vitamin D3 25 mcg (1,000 unit) tablet [...] Updated DateTime 4 154.94 cm 18.8 kg/m2 03525.0 8 g 98.4 [degF] 99 % 99 % 65 /min 17 /min 126 mm[Hg] 72 mm[Hg] JOSE M DENNISON RN [facility] 15:36:50 Date Recorded Body height Body mass index (BMI) Body weight Body temperature Heart rate Oxygen saturation Oxygen saturation in Arterial blood by Pulse oximetry Respiratory rate Provider Name and Address Organization Details Last Updated DateTime 4 152.4 cm 21.4 kg/m2 43577.6 7 g 96.9 [degF] 68 /min 99 % 99 % 16 /min TONYA MCCOY CMA [facility] 15:20:25 Date Recorded Systolic blood pressure Diastolic blood pressure Provider Name and Address Organization Details Last Updated DateTime 03/05/2024 133 mm[Hg] 72 mm[Hg] SKYLA GALINDO MD [address], [place], [address], [facility] 03/05/2024 16:05:34 Social History Question Answer Notes LastModified by Organizat ion Details LastModified Time Tobacco Smoking Status Never Smoker JOSE M DENNISON RN [facility], [facility] 08/03/2023 15:38:11 Do You Have An Advance [...] Do You Have A Medical Power Of Scarf Gluer? No Information not available 03/05/2024 What Was The Date Of Your Most Recent Tobacco Screening? 03/05/2024 Information n ot available 03/05/2024 Has Tobacco Cessation Counseling Been Provided? No [email or web address] Information not available 08/03/2023 Do You Have [...] Age of this Age Resolved Age Notes LastModified by Organization Details LastModified Time Father Family history of Hypertension [email or web address] Not available 04/2023 03:58:06 Mother Family history of diabetes mellitus type 1 [email or web address] Not available 2022 03:58:07 Medical History No medical history recorded. Gynecological HistoryNo gynecological history recorded. Obstetrics History GPAL:G 0 P 0 0 0 0 Immunizations Vaccine Type Date Status Provider Name and Address Organization Details Recorded Time Pneumococcal conjugate PCV20, polysaccharide RUY891 conjugate, adjuvant, PF 03/05/2024 completed KARSON SANCHEZ, [place] - [facility] 03/05/2024 16:26:25 Tdap 06/28/2016 completed Not Available [facility] 04:14:13 zoster live 12/29/2015 completed Not Available [facility] 06/08/2023 04:14:14 Pneumococcal conjugate PCV 13 02/22/2017 completed Not Available [facility] 06/08/2023 04:14:14 Influenza, split virus, trivalent, preservative 05/05/2016 completed Not Available [facility] 06/08/2023 04:14:16 Influenza, split virus, quadrivalent, preservative 04/15/2018 completed Not Available [facility] 06/08/2023 04:14:17 Influenza, high-dose, quadrivalent, PF 04/17/2022 completed Not Available [facility] 06/08/2023 04:14:18 Influenza, high-dose, quadrivalent, PF 05/11/2021 completed Not Available [facility] 06/08/2023 04:14:18 COVID-19, mRNA, LNP-S, PF, 30 mcg/0.3 mL dose 09/30/2020 completed Not Available [facility] 06/08/2023 04:14:20 COVID-19, mRNA, LNP-S, PF, 30 mcg/0.3 mL dose 10/28/2020 completed Not Available [facility] 06/08/2023 04:14:20 pneumococcal polysaccharide PPV23 04/15/2018 completed Not Available [facility] 2022 04:14:22 influenza, unspecified formulation 05/05/2017 completed Not Available [facility] 06/08/2023 04:14:23 influenza, unspecified formulation 05/17/2020 completed Not Available [facility] 06/08/2023 04:14:24 Influenza, high-dose, quadrivalent, PF 04/20/2023 completed Not Available [facility] 08/10/2023 05:33:00 Past Encounters Encounter ID Performer Location Encounter Start Date Encounter Closed Date Diagnosis/Indication Diagnosis SNOMED-CT Code Diagnosis ICD10 Code [id number] SKYLA GALINDO MD [address] [address] 08/03/2023 15:18:00 08/03/2023 16:16:08 Unintentional weight loss 988464422 R63.4 Essential hypertension 26073057 I10 Hyperlipidemia 09295701 E78.5 [id number] TONYA MCCOY CMA [address] [address] 03/05/2024 15:11:27 03/05/2024 16:07:08 Active or passive immunization 223153512 Z23 Essential hypertension 98284423 I10 Hyperlipidemia 78404065 E78.5 Vitamin D deficiency 347 29692 E55.9 Adult heal th examination 090195208 Z00.00 Memory impairment 291314 006 R41.3 Health Concerns Section Related Observation LastModified by Organization Detai ls LastModified Time None Recorded Concern Status LastModified by Organization Details LastModified Time None Recorded Advance Directives Directive N: Payers Encounter Date Sequence Insurance Name Policy Number Policy Meyers Covered Member ID Meyers Member ID Guarantor Name 08/03/2023 1 [place] [employer] Randee Ho [id number] 21 Randee Ho 03/05/2024 1 [place] [facility] Randee Ho [id number] 21 Randee Ho Notes Date Note Type [...] in for all of her medication's. SKYLA GALINDO MD [address], [place], [address], [facility] - [facility]. 08/05/2023 05:54:08 OBGyn Episode No OBEpisode recorded.
--- OUTSIDE RECORDS SUMMARY | 2024-04-18 01:24 | XMS_ITS | Continuity of Care Document ---
Author Organization [facility] Address [address] [place] [address] Assessment Encounter Date Assessment Date Assessment LastModified by Organization Details LastModified Time 03/05/2024 03/05/2024 The total time devoted to today's encounter, including both the ajll-wt-rfcg time with the patient and/or family/caregi katt and efk-ifxc-kd-f kvng time I personally spent is 45 minutes. [email or web address] Not available 03/05/2024 16:17:58 Plan of Treatment Reminders Order Date Submit Date Provider Last Modified By Organization Details Last Modified Time Details Appointments Follow Up 20 2023 03:50P M Not available Not available Not available Lab vitamin B12, serum 2023 024 [facility] [address] [place] [address] [place], [address], 03/06/2024 10:15:40 lipid panel, serum 2023 024 [facility] [address] [place] [address] [place], [address], 03/06/2024 10:15:27 CBC 2023 024 [facility] [address] [place] [address] [place], [address], 03/05/2024 21:40:48 vitamin D, 25-hydrox y, total, serum 2023 024 [email or web address] [facility] ([facility]), [address] [place] [address] [place], [address], 03/12/2024 08:31:36 CMP, serum or plasma - 1T, 1P 2023 024 [facility] [address] [place] [address] [place], [address], 03/05/2024 23:13:[address] referral 2023 024 [email or web address] [facility], [address] [facility] [place], [address], 04/17/2024 13:08:00 Procedures None recorded. Surgeries None recorded. Imaging None recorded. Medication Orders None recorded. Patient TargetsNo targets recorded. Patient InstructionsNo instructions recorded. Reason for Referral Neurologist Referral for Mem ory impairment Referring Physician: Skyla Bui, Family Medicine, Encounter Date: 03/05/2024 Results Created Date Observation Date Name Description Value Unit Range Abnormal Flag Note LastModifiedBy Organization Detail LastModifiedTime 04/14/20 24 09/25/2022 imagi ng/di agnos tic resul t No observ ation record ed. [email or web address] Not Available 04/14 04:41:55 Result Notes None recorded. Problems Name Problem SNOMED Code Status Onset Date Resolution Date Notes Provider Name and Address Organization Details Recorded Time [place] e present 553809418 Active 201504/17/20 18 - Comments only - Skyal Bui MD - These are getting less over time. Problem Code: N95.1; Problem Code Type: ICD-10; Not Available [facility] 3 05:13:45 Adult health examinat ion Active 201508/24/19 23 - Comments only - Skyla Bui MD - Randee johnson is a healthy [...] Z00.00; Problem Code Type: ICD-10; Not Available [facility] 3 05:13:45 Rosacea 594100558 Active 201501/12/20 17 - Comments only - Skyla Bui MD - Refer to dermatol ogy. Problem Code: L71.9; Problem Code Type: ICD-10; Not Available [facility] 3 05:13:45 Essentia l hyperten jing 47901745 Active 201508/24/19 23 - Comments only - Skyla Bui MD - Blood pressure stable no changes were made today. Problem Code: I10; Problem Code Type: ICD-10; Not Available 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 We discusse d using NSAID and would not want to take them. Problem Code: M19.90; Problem Code Type: ICD-10; Not Available [facility] 3 05:13:45 Tear film insuffic iency 43289715 Active 201506/28/20 16 - Comments only - Skyla Bui MD - Patient has dry red eyes and has a small lesion on the outer sclera of the left eye and would like a referal to the opthtomo logist. Problem Code: H04.129; Problem Code Type: ICD-10; Not Available [facility] 3 05:13:45 Vitamin D deficien cy 12195076 Active 201501/12/20 17 - Comments only - Skyla Bui MD - Patient Vitamin D is still low. She will start 2000IUs a day. Problem Code: E55.9; Problem Code Type: ICD-10; Not Available [facility] 3 05:13:45 Hyperlip idemia 40886201 Active 201608/24/19 23 - Comments only - Skyla Bui MD - Patient' s choleste rols been controll ed no changes were made today. Problem Code: E78.5; Problem Code Type: ICD-10; Not Available [facility] 3 05:13:45 Screenin holly for osteopor osis Active 2017 Problem Code: Z13.820; Problem Code Type: ICD-10; Not Available [facility] 3 05:13:46 Screenin holly mammogra phy Active 201802/15/20 19 - Comments only - Skyla Bui MD - Patient is way overdue for her mammogra m we will go ahead and get that schedule d. Problem Code: Z12.31; Problem Code Type: ICD-10; Not Available [facility] 3 05:13:46 Disorder of skin and/or subcutan eous tissue 38838150 Active 201805/11/20 21 - Comments only - Skyla Bui MD - The lesion on her nose really look more like rosacea than any other concern. Recommen d she stop picking at the little pimples and let it heal up. She does have a prescrip tion for Cleocin if she can continue to use that. Problem Code: L98.9; Problem Code Type: ICD-10; Not Available [facility] 3 05:13:46 Chronic rhinitis 92680014 Active 202208/24/19 23 - Comments only - Skyla Bui MD - Patient' s biggest concern today [...] J31.0; Problem Code Type: ICD-10; Not Available [facility] 3 05:13:46 Viral screenin g Completed 201805/22/2019 Problem Code: Z11.59; Problem Code Type: ICD-10; Not Available [facility] 3 05:14:01 Hypergly cemia 93623096 Completed 201501/11/2017 Problem Code: R73.9; Problem Code Type: ICD-10; Not Available [facility] 3 05:14:05 Unintent ional weight loss 087925898 Active 2022 JOSE M DENNISON RN [facility], [place] - [facility] 3 12:35:41 Screenin g for cancer Active 2022 Problem Code: Z12.10; Problem Code Type: ICD-10; Not Available [facility] 4 05:36:54 Abnormal weight loss 378190452 Active 202204/20/20 23 - Comments only - Skyla Bui MD [...] R63.4; Problem Code Type: ICD-10; Not Available [facility] 4 05:36:54 Feces-ba sed colorect al cancer DNA screenin g Active 2023 TONYA MCCOY CMA null, [facility] 4 13:44:45 Memory impairme nt 188214718 Active 2023 SKYLA BUI MD [facility] [address], [place], [address] , [facility] - [facility] 4 16:14:12 Problem Notes None recorded. Medical [...] Updated DateTime 4 152.4 cm 21.4 kg/m2 77536.6 7 g 96.9 [degF] 68 /min 99 % 99 % 16 /min TONYA MCCOY CMA [facility] 15:20:25 Date Recorded Systolic blood pressure Diastolic blood pressure Provider Name and Address Organization Details Last Updated DateTime 03/05/2024 133 mm[Hg] 72 mm[Hg] MD [address], [place], [address], [facility] 03/05/2024 16:05:34 Social History Question Answer Notes LastModified by Organizat ion Details LastModified Time Tobacco Smoking Status Never Smoker JOSE M DENNISON RN [facility], [place] - [facility] 08/03/2023 15:38:11 Do You Have [...] Do You Have A Medical Power Of Linter Saw Sharpener? No Information not available 03/05/2024 What Was The Date Of Your Most Recent Tobacco Screening? 03/05/2024 Information n ot available 03/05/2024 Has Tobacco Cessation Counseling Been Provided? No Information not available 08/03/2023 Do You Have [...] Details Recorded Time Pneumococcal conjugate PCV20, polysaccharide NJN641 conjugate, adjuvant, PF 03/05/2024 completed KARSON SANCHEZ, [place] - [facility] 03/05/2024 16:26:25 Tdap 06/28/2016 completed Not Available [facility] 04:14:13 zoster live 12/29/2015 completed Not Available [facility] 06/08/2023 04:14:14 Pneumococcal conjugate PCV 13 02/22/2017 completed Not Available [facility] 06/08/2023 04:14:14 Influenza, split virus, trivalent, preservative 05/05/2016 completed Not Available [facility] 06/08/2023 04:14:16 Influenza, split virus, quadrivalent, preservative 04/15/2018 completed Not Available [facility] 06/08/2023 04:14:17 Influenza, high-dose, quadrivalent, PF 04/17/2022 completed Not Available [facility] 06/08/2023 04:14:18 Influenza, high-dose, quadrivalent, PF 05/11/2021 completed Not Available [facility] 06/08/2023 04:14:18 COVID-19, mRNA, LNP-S, PF, 30 mcg/0.3 mL dose 09/30/2020 completed Not Available [facility] 06/08/2023 04:14:20 COVID-19, mRNA, LNP-S, PF, 30 mcg/0.3 mL dose 10/28/2020 completed Not Available [facility] 06/08/2023 04:14:20 pneumococcal polysaccharide PPV23 04/15/2018 completed Not Available [facility] 2022 04:14:22 influenza, unspecified formulation 05/05/2017 completed Not Available [facility] 06/08/2023 04:14:23 influenza, unspecified formulation 05/17/2020 completed Not Available [facility] 06/08/2023 04:14:24 Influenza, high-dose, quadrivalent, PF 04/20/2023 completed Not Available [facility] 08/10/2023 05:33:00 Past Encounters Encounter ID Performer Location Encounter Start Date Encounter Closed Date Diagnosis/Indication Diagnosis SNOMED-CT Code Diagnosis ICD10 Code [id number] TONYA MCCOY [address] [address] 03/05/2024 15:11:27 03/05/2024 16:07:08 Active or passive immunization 048102625 Z23 Essential hypertension 86499639 I10 Hyperlipidemia 32926459 E78.5 Vitamin D deficiency 347 60810 E55.9 Adult heal th examination 343709568 Z00.00 Memory impairment 979600 006 R41.3 Health Concerns Section Related Observation LastModified by Organization Kathi ross LastModified Time None Recorded Concern Status LastModified by Organization Details LastModified Time None Recorded Payers Encounter Date Sequence Insurance Name Policy Number Policy Meyers Covered Member ID Meyers Member ID Guarantor Name 03/05/2024 1 [place] [employer] Randee Ho [id number] 21 Randee Ho OBGyn Episode No OBEpisode recorded.
--- OUTSIDE RECORDS SUMMARY | 2024-04-18 01:24 | XMS_ITS | Encounter Summary ---
Author Organization [facility] Address [address] [place] [address] Care Team Providers Care Window Shade Cutter And Mounter Name Role Phone Unknown, Provider Primary Care Provider Encounter Details Date Type Department Care Team (Late st Contact Info) Description 02/22/2021 Lab Requisition [facility] Pathology & Laboratory Medicine - [facility] [address] [place] [address] [address] [place] [address] Encounter for other general examination [...] types, PCR Negative Negative 03/02/2021 15:18 EDT [facility] Comment:No E6 or E7 mRNA is detected from HPV types 16,18,31,33,35,39,45,51,52,56,58,59,66, and 68 by dental internship mediated amplification. Papanicolaou smear specimen (specimen) CERVIX UTERI STRUCTURE / Unknown 02/21/2021 13:20 EDT 03/01/2021 13:35 EDT Haydee Obrien BUILDING ARCHITECT MICROBIOLOGY - GENER AL ORDERABLES [facility] [address] [place] [address] * PAP TEST (02/21/2021 13:20 EDT) Specimens A. Cervix and/or Endocervix , ThinPrep Imaging System with Manual Evaluation 03/02/2021 15:18 EDT [facility] Specimen Adequacy Satisfactory for Evaluation - transformation zone component present 03/02/2021 15:18 EDT [facility] General Categorization Negative for intraepithelial lesion or malignancy 03/02/2021 15:18 T [facility] Attestation . 03/02/2021 15:18 T [facility] at 1518 Clinical History See below 03/02/20 15:18 T [facility] HPV The result for the Human Papillomavirus (HPV) Detection-High Risk Types is Negative. No E6 or E7 mRNA is detected from HPV types 16,18,31,33,35,39 ,45,51,52,56,58,5 9,66, and 68 by dental internship mediated amplification.Priscilla ting was performed on specimen [id number] and was resulted on 03/02/2021 1509 EDT by VICKY, LAB INSTRUMENT RESULTS IN 03/02/2021 15:18 EDT [facility] Performing Lab [facility] 03/02/2021 15:18 EDT [facility] Scanned Images 03/02/2021 15:18 EDT [facility] Papanicolaou smear specimen (specimen) CERVIX UTERI STRUCTURE / Unknown 02/21/2021 13:20 EDT 02/22/2021 11:43 EDT Haydee Obrien BUILDING ARCHITECT PATHOLOGY ORDERABLES [facility] [address] [place] [address] documented in this encounter Visit Diagnoses Diagnosis Encounter for other general examination documented in this encounter Care Teams Window Shade Cutter And Mounter Relationship Specialty Start Date End Date Unknown, Provider, PCP - General 05/24/15 documented as of this encounter
--- OUTSIDE RECORDS SUMMARY | 2024-04-18 01:24 | XMS_ITS | Clinical Summary ---
Author Organization [facility] [place] [address] Care Team Providers Care Can Machine Operator Name Role Phone Ale Brink APRN Primary Care Provider [phone]- [phone] Medications Medication Sig Dispensed Refills Start Date [...] Hypertension 11/05/2020 Rosacea 11/05/2020 Hot flashes 11/05/2020 Encounters Date Type Department Care Team Description 03/21/2024 Transcribe Orders eD Incoming Referrals [phone] Skyla Bui MD Other amnesia from Last 3 Months Immunizations Name Administration Dates Next Due Influenza [...] place to sleep or slept in a [place] health care facility (including now)? No 04/08/2021 Sex and Gender [...] 04/11/2021 1:28 PM EDT Plan of Treatment Upcoming Encounters Date Type Department Care Team (Late st Contact Info) Description 04/28/2024 1:00 PM EDT [place] [address] Luis Otero MD [facility] [place] [address] Health Maintenance Due Date Last Done Comments [...] Covid-19 Vaccine (1 - 2022-2 4 season) 2024 Influenza (Flu) vaccine (1 o f 1 - Influenza standard series) 03/30/2024 05/17/2020, 04/05/2018, 05/05/2017, Additional history exists Tetanus vaccine 06/28/2026 06/28/2016 Colorectal Cancer Screening 08/03/2026 FIT DNA 08/03/2026 08/03/2023 (Report in eDH) Bone Density Scan 06/04/2033 06/04/2018 (Ou tside per patient (enter details in comments)) Tdap adult Completed 06/28/2016 Care Teams Can Machine Operator Relationship Specialty Start Date End Date Ale Brink APRN [facility] [address] [place] [address] PCP - General Family Medicine 04/11/21
--- OUTSIDE RECORDS SUMMARY | 2024-04-18 01:24 | XMS_ITS | Encounter Summary ---
[place] [address] Care Team Providers Care Licensed Occupational Therapist Name Role Phone Skyla Bui MD Primary Care Provider [phone] Encounter Details Date Type Department Care Team (Late st Contact Info) Description 11/05/2020 Abstract Family Medicine at [facility] [address] [place] [address] Anabella Feliz CMA Social History Tobacco Use Types Packs/Day Years [...] 1:00 PM EDT Office [place] [address] Luis Otero MD [facility] [place] [address] documented as of this encounter Visit Diagnoses Not on filedocumented in this encounter Care Teams Licensed Occupational Therapist Relationship Specialty Start Date End Date Skyla Bui MD [address] [place] [address] PCP - General Family Medicine 01/12/17 04/10/21 documented as of this encounter
--- OUTSIDE RECORDS SUMMARY | 2024-04-18 01:24 | XMS_ITS | Encounter Summary ---
Author Organization [facility] [place] [address] Care Team Providers Care Interlocking Machine Operator Name Role Phone Ale Brink APRN Primary Care Provider [phone] Reason for Visit * Reason Comments Annual Wellness Visit Establish Care Encounter Details Date Type Department Care Team (Late st Contact Info) Description 04/11/2021 1:20 PM EDT Office Visit Family Medicine at [facility] [address] [place] [address] Ale Brink APRN [facility] [address] [address] Preventative health care; Encounter for screening mammogram [...] Patient Instructions * Patient Instructions* Roddy Sullivan, [facility] - 04/11/2021 1:20 PM EDT Images from the original note were not included. - Please decrease your atenolol to 50mg daily for the next two weeks, and take your blood pressure twice a day at home. Please call and speak with the nurse about your home blood pressure readings. Important Resources in the Community: [place]ging resource center - [place] - [place] - Service Link Health Maintenance recommendations [] [...] Where can you learn more? Visit our health information library at [email or web address] You can also view health information on [employer], your personal patient account. Log in or sign uptoday. Enter Y074 in the search box to learn more about Well Visit, Women 50 to 65: Care Instructions. Current as of: December 24, 2019?Content Version: 12.9 ?? 4410-0357 [employer]. Care instructions adapted under license by [facility]. If you have questions about a medical condition or this instruction, always ask your healthcare professional. [employer] disclaims any warranty or liability for your [...] Where can you learn more? Visit our [employer] information library at [email or web address] You can also view health information on [employer], your personal patient account. Log in or sign uptoday. Enter C427 in the search box to learn more about Home Blood Pressure Test: About This Test. Current as of: March 29, 2020?Content Version: 12.9 ?? 0541-9125 [employer]. Care instructions adapted under license by [facility]. If you have questions about a medical condition or this instruction, always ask your healthcare professional. [employer] disclaims any warranty or liability for your use of this information. documented in this encounter Progress Notes * Roddy Sullivan, [facility] - 04/11/2021 1:20 PM EDT Randee Vera Vic, is a 70 y.o. female presents for : [x] Medicare Annual Wellness Visit [] Welcome to Medicare Visit (in the first 12 mo of medicare, requires vision screen, PE) Preferred phone for AWV if needed: [phone] Patient Care Team and Vendors: (add in [...] verified the information provided by the medical record consultant as documented in this encounter. . Pt presents new to me for AWV. Generally feels well. Has lost some weight this year intentionally by improving her diet. We have received limited outside records from her previous PCP in [facility]. She lives in the [facility] area and wanted to travel down here [...] ??? Comprehensive metabolic panel (non-fasting) ??? TSH [place] ??? Vitamin B12 ??? CBC (with Diff) ??? Folate, serum ??? Hemoglobin A1c Individualized counseling around health risk factors and appropriate referrals were made, including: [] Tobacco cessation (Referral to Tobacco cessation = VLD934) [] Safe alcohol use [] Fall risks (Referral to Falls Clinic = AJT818) [] Healthy sleep (Referral to Sleep Medicine = REF99) [] Nutritional counseling (Referral to Nutrition = REF50) [] Advanced Care Planning (Referral for ACP = EDR352) [] Need for driving assessment (Referral for Driving Assessment = TTX647) [x] Senior resources provided in After Visit Summary (Referral to Aging Resource Center = YKY231) ASSESSMENT AND PLAN (other conditions addressed): Diagnoses [...] (non-fasting); Future; Expected date: 04/11/2021 - TSH [place]; Future; Expected date: 04/11/2021 Due for monitoring [...] management if needed. Cognitive change - TSH [place]; Future; Expected date: 04/11/2021 - Vitamin B12; Future; Expected date: 04/11/2021 - CBC (with Diff); Future; Expected date: 04/11/2021 - Folate, serum; Future; Expected date: 04/11/2021 Unable to perform three word recall, and unable to draw clock with time 11:10. Draws [place], but unable to follow instructions to draw [...] MOCA and BP check. Ale Brink DNP, C.O.D. [facility] [address]. Primary [facility] [phone] # [phone] documented in this encounter Plan of Treatment Upcoming Encounters Date Type Department Care Team (Late st Contact Info) Description 04/28/2024 1:00 PM EDT [place] [address] Luis Otero MD [facility] [place] [address] documented as of this encounter Visit Diagnoses [...] infection documented in this encounter Care Teams Interlocking Machine Operator Relationship Specialty Start Date End Date Ale Brink APRN [facility] [address] [place] [address] PCP - General Family Medicine 04/11/21 documented as of this encounter
--- OUTSIDE RECORDS SUMMARY | 2024-04-18 01:24 | XMS_ITS | Encounter Summary ---
Author Organization [facility] Address [address] [place] [address] Care Team Providers Care Oil Well Driller Name Role Phone Unavailable Primary Care Provider Unavailabl e Encounter Details Date Type Department Care Team (Latest Contact Info) Description 05/21/2015 15:14 EDT - 05/21/2015 23:59 EDT Hospital Encounter [address] [address] Unknown, Provider, Discharge Disposition: Home or Self Care Social History Tobacco Use Types Packs/Day Years Used Date Smoking Tobacco: Never Assessed Sex and Gender Information Value Date Recorded Sex Assigned at Not on file Gender Identity Not on file Sexual Orientation Not on file documented as of this encounter Discharge Disposition Disposition Code Departure Means Destination Home or Self Long-Term documented in this encounter Plan of Treatment Not on file documented as of this encounter Visit Diagnoses Not on filedocumented in this encounter
--- OUTSIDE RECORDS SUMMARY | 2024-04-18 01:24 | XMS_ITS | Encounter Summary ---
Author Organization [facility] Address [address] [place] [address] Care Team Providers Care Drafter Cartographic Name Role Phone Unknown, Provider Primary Care Provider [phone] Encounter Details Date Type Department Care Team (Late st Contact Info) Description 05/21/2015 Results Only [facility] [phone] Jackie García MD [address] [place] [address] [place] [address] Social History Tobacco Use Types Packs/Day Years [...] ? FRIDA ELDER ? Accession #: ? [id number] ? : ? 1950 (Age: 64) ??F [...] undetermined significance (ASC-US). EDUCATIONAL NOTES/RECOMMENDAT IONS ? [facility] recommends following ASCCP's 2012 Updated Consensus Guidelines for the Management of Abnormal Cervical Cancer Screening Tests and Cancer Precursors (JLGTD, 2013; 17(5):S1-S27). ??Consensus guidelines are available online at www.asccp.org. Specimen/Source: ??Pap Test, Cervix/Endocervix , ThinPrep Imaging System with manual evaluation Document reviewed and electronically signed by: ? [facility] ? Report ??Date: 05/27/2015 09:01 HPV with Pap Test ? Date Ordered: ? 05/26/2015 ? Status: ?? Signed Out ?Date Complete: ? 05/29/2015 ? By: ??System Interface ? Date Reported: ? 05/29/2015 ? Interpretation RESULT: Negative for HPV. No E6 or E7 mRNA is detected from HPV types 16,18,31,33,35, 39,45,51,52,56,58 ,59,66, and 68 by park maintenance technician mediated amplification. Comments Document reviewed and electronically signed by: ? System Interface ? Report date: 05/29/2015 By the signature above, the attending physician certifies that he/she has personally conducted a gross and/or microscopic examination of the described specimens and rendered or confirmed the above diagnosis. End of Report [facility] 05/21/2015 05/24/2015 Jackie García MD PATHOLOGY ORDERABLES [facility] [address] [place] [address] documented in this encounter Visit Diagnoses Not on filedocumented in this encounter Care Teams Drafter Cartographic Relationship Specialty Start Date End Date Unknown, Provider, PCP - General 05/24/15 documented as of this encounter
[2024-04-18 13:17] LABS: Anion Gap 6.8 mmol/L (3-11); BUN 12 mg/dL (7-18); CO2 31.2 mmol/L (21.0-32.0); CREATININE 0.8 mg/dL (0.55-1.02); Calcium 9.3 mg/dL (8.5-10.1); Chloride 96 mmol/L (98-107); Estimated GFR 78.24 (mL/min/1.73m2); GGT 148 U/L (5-55); Glucose 102 mg/dL (74-106); Potassium 3.5 mmol/L (3.5-5.1); Sodium 134 mmol/L (136-145)
[2024-04-18 13:56] LABS: Vitamin B12 769 pg/mL (193-986)
== END 2024-04-18 01:23 | disposition home or self-care (01) ==
PROVIDERS: PCP Family Medicine; Visit Provider Family Medicine
DX: R74.8 Abnormal levels of other serum enzymes (principal); E87.1 Hypo-osmolality and hyponatremia; E53.8 Deficiency of other specified B group vitamins
CPT/HCPCS: 36415; 80048; 82607; 82977

== ENCOUNTER → 2024-08-07 13:31 | Outpatient (BNVA) | payer MEDICARE, SELFPAY | PROVIDERS: PCP Family Medicine; Referring Provider Family Medicine; Visit Provider Nurse Practitioner Adult Health | DX: R41.3 Other amnesia (principal); R26.89 Other abnormalities of gait and mobility | CPT/HCPCS: 99215 ==

== ENCOUNTER 2024-08-28 02:46 | Outpatient (CLI) | payer MEDICARE, SELFPAY ==
--- NOTE | 2024-08-28 07:30 | DI.MRI_ITS ---
Exam(s) MR BRAIN WO EXAM: MR BRAIN WO CLINICAL HISTORY: ? stroke, mass,memory impairment,r41.3 TECHNIQUE: Multiplanar multisequence MRI of the brain was performed. COMPARISON: No prior brain imaging exams were available for comparison FINDINGS: CEREBRAL PARENCHYMA: There is no evidence of intracranial hemorrhage, mass effect, or shift of midline structures. There are no extra-axial fluid collections. Ventricles are not enlarged or shifted. There is no evidence of cerebellar tonsillar ectopia. There is no abnormal signal abnormality in the cerebellar hemispheres. There is prominent FLAIR brig ht signal abnormality in both sides of the praful, not associated with hemorrhage, edema, nor restricte d diffusion. There is no abnormal signal in the medius in cephalo on-midbrain and nor in the thalami . There are scattered sub cm multiple foci of FLAIR bright signal abnormality in the bilateral white ma tter. These are also not associated with restricted diffusion. SWI reveals no evidence of microhemorrhages in the brain. PITUITARY GLAND: No mass nor parasellar abnormality. No obvious abnormality in the cavernous sinuses. FLOW VOIDS: The expected flow void are noted. No evidence of obvious aneurysm nor obvious vascular ma lformation. PARANASAL SINUSES: There is a tiny fluid level in the right maxillary sinus. There is circumferentia l mucosal edema in left maxillary sinus without a fluid level evident in left maxillary sinus. Sphen oid and frontal sinuses are clear. Mastoid air cells reveal mild effusion on the left side and clear on the right side. ORBITS: No obvious findings. IMPRESSION: Chronic white matter ischemic changes noted in the praful as well as in the bilateral periventricular w raymundo matter. No evidence of acute ischemic event and no evidence of intracranial hemorrhage. Ventri cular size is normal. The amount of involutional change is consistent with patient's age. Small fluid level incidentally noted in the right maxillary sinus. May indicate mild sinusitis. DATA REPOSITORY:
== END 2024-08-28 03:06 ==
LOC: DI 02:47
PROVIDERS: PCP Family Medicine; Visit Provider Nurse Practitioner Adult Health
DX: I67.82 Cerebral ischemia (principal)
CPT/HCPCS: 70551

== ENCOUNTER → 2024-09-16 14:17 | Outpatient (BNVA) | payer MEDICARE, SELFPAY | PROVIDERS: PCP Family Medicine; Referring Provider Family Medicine; Visit Provider Nurse Practitioner Adult Health | DX: R41.3 Other amnesia (principal) | CPT/HCPCS: 99214 ==

== ENCOUNTER → 2024-12-17 13:18 | Outpatient (BNVA) | payer MEDICARE, SELFPAY | PROVIDERS: PCP Family Medicine; Referring Provider Family Medicine; Visit Provider Nurse Practitioner Adult Health | DX: R41.3 Other amnesia (principal); E53.8 Deficiency of other specified B group vitamins; F10.90 Alcohol use, unspecified, uncomplicated | CPT/HCPCS: 99214 ==

== ENCOUNTER → 2025-06-15 13:05 | Outpatient (BNVA) | payer MEDICARE, SELFPAY | PROVIDERS: PCP Family Medicine; Referring Provider Family Medicine; Visit Provider Nurse Practitioner Adult Health | DX: F03.90 Unspecified dementia, unspecified severity, without behavioral disturbance, psychotic disturbance, mood disturbance, and anxiety (principal) | CPT/HCPCS: 99214 ==